=== PATIENT | female | born 1955 | race Caucasian/White ===

== ENCOUNTER → 2016-07-09 | Outpatient (CLI) | payer MEDICARE, MEDICAID | END | disposition home or self-care (01) | LOC: XYW 10:41 | PROVIDERS: ATTEND Internal Medicine | DX: I35.0 Nonrheumatic aortic (valve) stenosis (principal); I34.0 Nonrheumatic mitral (valve) insufficiency; I27.2 Other secondary pulmonary hypertension; I51.7 Cardiomegaly | CPT/HCPCS: 93306 ==

== ENCOUNTER → 2016-09-24 | Outpatient (CLI) | payer MEDICARE, MEDICAID | END | disposition home or self-care (01) | LOC: Rad HDHVI 13:31 | PROVIDERS: ATTEND Internal Medicine Cardiovascular Disease | DX: I10 Essential (primary) hypertension (principal); I27.2 Other secondary pulmonary hypertension | CPT/HCPCS: 93306 ==

== ENCOUNTER → 2016-10-08 | Outpatient (CLI) | payer MEDICARE, MEDICAID ==
[~2016-10-08] VITALS: Ht 175.3 cm; Wt 95.3 kg
[~2016-10-08] MED LIST: ACETAMINOPHEN 500 MG TAB PO ONE; D5W 5% IV SCH; DIPYRIDAMOLE (5MG/ML) 10 ML VIAL IV ONE; DIPYRIDAMOLE IV SCH
[2016-10-08 16:38] LABS: Urine Bilirubin Negative (Negative); Urine Blood Negative /uL (Negative); Urine Color Yellow (Yellow); Urine Glucose Normal (Normal); Urine Ketone Negative (Negative); Urine Nitrite Negative (Negative); Urine Urobilinogen Normal (Negative); Urine pH 7.5 (5.0-8.0)
[2016-10-08 16:41] LABS: Basophils # (auto) 0 uL; Basophils % (auto) 0.8 % (0.0-2.0); CONDITION Y; Eosinophils # (auto) 0.2 uL; Eosinophils % (auto) 4.3 % (0.0-7.0); Hematocrit 37.3 % (36.0-46.0); Hemoglobin 12.6 g/dL (12.2-16.2); Lymphocytes # (auto) 1.3 uL; Mean Corpuscular Hgb Conc. 33.7 g/dL (32.0-36.0); Mean Corpuscular Volume 94.9 fL (80.0-100.0); Monocytes # (auto) 0.4 uL; Monocytes % (auto) 10.1 % (0.0-12.0); Neutrophils # (auto) 1.9 uL; Neutrophils % (auto) 49.8 % (37.0-80.0); Platelet Count (auto) 252 10^3/uL (140-450); Red Cell Distribution Width 15.8 % (11.6-16.0); White Blood Cell 3.9 10^3/uL (4.4-10.8)
[2016-10-08 17:06] LABS: Albumin 4.2 g/dL (3.4-5.0); Bilirubin, Direct 0.1 mg/dL (0-0.2); Bilirubin, Total 0.5 mg/dL (0.2-1.0); Calcium 8.5 mg/dL (8.5-10.1); Total Protein 7.8 g/dL (6.4-8.2)
== END | disposition home or self-care (01) ==
LOC: Rad HDHVI 10:17
PROVIDERS: ATTEND Internal Medicine Cardiovascular Disease
DX: I10 Essential (primary) hypertension (principal); E78.00 Pure hypercholesterolemia, unspecified; K74.1 Hepatic sclerosis; E11.9 Type 2 diabetes mellitus without complications; E03.9 Hypothyroidism, unspecified; D64.9 Anemia, unspecified; E55.9 Vitamin D deficiency, unspecified; N39.0 Urinary tract infection, site not specified; I51.7 Cardiomegaly
CPT/HCPCS: 36415; 78452; 80048; 80061; 80076; 81003; 82306; 83036; 84443; 85025; 93017; 96374; A9500; J1245

== ENCOUNTER → 2016-12-04 | Outpatient (CLI) | payer MEDICARE, MEDICAID ==
[2016-12-04 10:00] VITALS: BP 138/74
[2016-12-04 11:26] LABS: Basophils # (auto) 0 uL; Basophils % (auto) 1.2 % (0.0-2.0); Eosinophils # (auto) 0.1 uL; Eosinophils % (auto) 4.2 % (0.0-7.0); Hematocrit 33.7 % (36.0-46.0); Hemoglobin 11.5 g/dL (12.2-16.2); Lymphocytes # (auto) 1.4 uL; Lymphocytes % (auto) 38.7 % (10.0-50.0); Mean Corpuscular Hemoglobin 31.5 pg (28.0-32.0); Mean Corpuscular Volume 92.5 fL (80.0-100.0); Mean Platelet Volume 7.8 fL (6.9-10.8); Monocytes # (auto) 0.5 uL; Monocytes % (auto) 14.5 % (0.0-12.0); Neutrophils # (auto) 1.5 uL; Neutrophils % (auto) 41.4 % (37.0-80.0); Nucleated Red Blood Cells % 0.2 %; Platelet Count (auto) 234 10^3/uL (140-450); Red Cell Distribution Width 14.1 % (11.8-14.3); White Blood Cell 3.6 10^3/uL (4.4-10.8)
[2016-12-04 11:33] LABS: Anion Gap 9 (5-15); BUN/Creatinine Ratio 5.9; Blood Urea Nitrogen 24 mg/dL (7-18); Calcium 8.2 mg/dL (8.5-10.1); Carbon Dioxide 30 mmol/L (21-32); Chloride 96 mmol/L (98-107); GFR African American 14 mL/min; GFR Non-African American 12 mL/min; Glucose 82 mg/dL (74-106); Magnesium 2.3 mg/dL (1.6-2.6); Potassium 3.6 mmol/L (3.5-5.1); Sodium 135 mmol/L (136-145)
[2016-12-04 11:49] LABS: INR 0.96 (0.9-1.15); Partial Thromboplastin Time 28.2 sec (22.64-33.71); Prothrombin Time 10.5 sec (9.37-12.3)
[2016-12-04 12:10] VITALS: BP 152/66
== END | disposition home or self-care (01) ==
LOC: Rad HDHVI 09:45
PROVIDERS: ATTEND Internal Medicine Cardiovascular Disease
DX: Z01.818 Encounter for other preprocedural examination (principal); I51.7 Cardiomegaly; I70.0 Atherosclerosis of aorta; I10 Essential (primary) hypertension; D64.9 Anemia, unspecified; R79.1 Abnormal coagulation profile
CPT/HCPCS: 36415; 71020; 80048; 83735; 84484; 85025; 85610; 85730; 93005; G0463

== ENCOUNTER 2016-12-09 09:56 | Inpatient (IN) | payer MEDICARE, MEDICAID ==
[~2016-12-09] VITALS: Ht 165.1 cm; Wt 93.9 kg
[2016-12-09] MEDS ORDERED: IOHEXOL 350 MG/ML 100ML IJ ONE (10:25)
[2016-12-09] MEDS ORDERED: LIDOCAINE 2%HCL (LOCAL ANESTH.) INJ 20ML MDV ONE ×2 (10:25→12:11)
[2016-12-09] MEDS ORDERED: fentaNYL CITRATE 100 MCG/2 ML VL ONE (11:50)
[2016-12-09] MEDS ORDERED: MIDAZOLAM HCL 1MG/1ML-2 ML VIAL ONE ×2 (11:50→12:11)
[2016-12-09] MEDS ORDERED: ANGIOMAX 250 MG VIAL IV ONE (11:50)
[2016-12-09] MEDS ORDERED: IODIXANOL 320MG/ML 100ML BTL IV ONE (11:51)
[2016-12-09] MEDS ORDERED: SODIUM CHL 0.9% 50 ML ONE (11:51)
[2016-12-09] MEDS ORDERED: HEPARIN 1,000 UNITS/ml 1ML VIAL ONE (12:41)
[2016-12-09] MEDS ORDERED: HEPARIN SODIUM (PORCINE) 5000 UNITS/ML 1ML VIAL ONE (12:41)
[2016-12-09] MEDS ORDERED: PRASUGREL HCL 10 MG TAB ONE (12:56)
[2016-12-09] MEDS ORDERED: ASPirin 325 MG TAB ONE (12:56)
[2016-12-09 12:57] LABS: Base Excess 4.9 mmol/L (-2.0-2.0); Blood 02Sat 82.5 % (96-100); Blood COHb 0.2 % (0.5-1.5); Blood MetHb 0.3 % (0.0-1.5); HCO3 31.3 mmol/L (22-26.0); HHb 17.4 % (0.0-5.0); MODE NC; O2Hb 82.1 % (94.0-97.0); PCO2 55.8 mmHg (35.0-45.0); PCO2(T) 55.8 mmHg (35.0-45.0); Sample Type Arterial; pH 7.367 (7.350-7.450)
[2016-12-09 13:05] LABS: Base Excess 5.2 mmol/L (-2.0-2.0); Blood COHb 0.1 % (0.5-1.5); Blood MetHb 0.2 % (0.0-1.5); HCO3 31.8 mmol/L (22-26.0); HHb 16.9 % (0.0-5.0); MODE NC; O2Hb 82.8 % (94.0-97.0); PCO2 57.3 mmHg (35.0-45.0); PCO2(T) 57.3 mmHg (35.0-45.0); PO2 51.6 mmHg (80.0-100.0); PO2(T) 51.6 mmHg (80.0-100.0); Sample Type Arterial; pH 7.362 (7.350-7.450)
[2016-12-09 13:07] LABS: Base Excess 3.2 mmol/L (-2.0-2.0); Blood 02Sat 98.2 % (96-100); Blood COHb 0.5 % (0.5-1.5); Blood MetHb 0.3 % (0.0-1.5); HCO3 29.4 mmol/L (22-26.0); HHb 1.8 % (0.0-5.0); MODE NC; O2Hb 97.4 % (94.0-97.0); PCO2 51.5 mmHg (35.0-45.0); PCO2(T) 51.5 mmHg (35.0-45.0); PO2 150.2 mmHg (80.0-100.0); PO2(T) 150.2 mmHg (80.0-100.0); Sample Type Arterial; pH 7.374 (7.350-7.450)
[2016-12-09 13:12] LABS: Base Excess 4.7 mmol/L (-2.0-2.0); Blood 02Sat 79.2 % (96-100); Blood COHb 0.3 % (0.5-1.5); Blood MetHb 0.1 % (0.0-1.5); HCO3 31.3 mmol/L (22-26.0); HHb 20.7 % (0.0-5.0); MODE NC; O2Hb 78.9 % (94.0-97.0); PO2 48.1 mmHg (80.0-100.0); PO2(T) 48.1 mmHg (80.0-100.0); Sample Type Arterial; pH 7.358 (7.350-7.450)
[2016-12-09 13:16] LABS: Base Excess 3.5 mmol/L (-2.0-2.0); Blood COHb 0.3 % (0.5-1.5); Blood MetHb 0.1 % (0.0-1.5); HHb 16.9 % (0.0-5.0); MODE NC; O2Hb 82.7 % (94.0-97.0); PCO2 56.3 mmHg (35.0-45.0); PCO2(T) 56.3 mmHg (35.0-45.0); PO2 53.1 mmHg (80.0-100.0); PO2(T) 53.1 mmHg (80.0-100.0); Sample Type Arterial; pH 7.345 (7.350-7.450)
[2016-12-09] MEDS ORDERED: MILK OF MAGNESIA 30ML SUSP PO ONE (13:30)
[2016-12-09] MEDS ORDERED: LORazepam 0.5 MG TAB PO PRN (13:30)
[2016-12-09] MEDS ORDERED: ZOLPIDEM TARTRATE 5 MG TAB PO PRN (13:30)
[2016-12-09] MEDS ORDERED: NITROGLYCERIN 0.4 MG SL TAB SL PRN (13:30)
[2016-12-09] MEDS ORDERED: ONDANSETRON HCL 4 MG/2 ML VIAL IV PRN (13:30)
[2016-12-09 15:27] VITALS: BP 137/72
[2016-12-09 16:43] VITALS: BP 145/79
[2016-12-09 17:07] VITALS: BP 137/72
[2016-12-09] MEDS ORDERED: DEXTROSE (50%) 50ML SYRG IV PRN (17:15)
[2016-12-09] MEDS ORDERED: AMLO5TAB2 PO (17:39)
[2016-12-09] MEDS ORDERED: ALLO100T PO (17:39)
[2016-12-09] MEDS ORDERED: GABA100C PO (17:46)
[2016-12-09] MEDS ORDERED: ATOR10TA PO (17:46)
[2016-12-09] MEDS ORDERED: FURO20TA PO (17:46)
[2016-12-09] MEDS: SODIUM CHLOR 0.9% PF (SALINE LOCK) 10ML VIAL IV SCH ×2 (18:00→21:38)
[2016-12-09 20:00] VITALS: BP 144/61
[2016-12-09] MEDS: ACCU-CHEK COMFORT CURVE STRIP VI SCH (21:38)
[2016-12-09] MEDS: InsuLIN REG 1unit/0.01ml Soln (100units/ml) SC SCH (21:38)
[2016-12-09 22:00] VITALS: BP 144/61
[2016-12-10 05:00] VITALS: BP 134/59
[2016-12-10] MEDS: SODIUM CHLOR 0.9% PF (SALINE LOCK) 10ML VIAL IV SCH ×3 (05:50→21:04)
[2016-12-10] MEDS: ACCU-CHEK COMFORT CURVE STRIP VI SCH ×4 (05:50→21:04)
[2016-12-10] MEDS: InsuLIN REG 1unit/0.01ml Soln (100units/ml) SC SCH ×4 (05:54→21:10)
[2016-12-10 07:57] VITALS: BP 120/69
[2016-12-10] MEDS: PRASUGREL HCL 10 MG TAB PO SCH (09:34)
[2016-12-10 13:00] VITALS: BP 151/75
[2016-12-10] MEDS: ACETAMINOPHEN 500 MG TAB PO PRN (14:22)
[2016-12-10 17:00] VITALS: BP 134/72
[2016-12-10 20:00] VITALS: BP 146/64
[2016-12-10 22:00] VITALS: BP 146/64
[2016-12-11] MEDS: ACETAMINOPHEN 500 MG TAB PO PRN (00:40)
[2016-12-11 05:00] VITALS: BP 138/67
[2016-12-11] MEDS: ACCU-CHEK COMFORT CURVE STRIP VI SCH ×3 (05:43→12:25)
[2016-12-11] MEDS: SODIUM CHLOR 0.9% PF (SALINE LOCK) 10ML VIAL IV SCH (05:43)
[2016-12-11] MEDS: InsuLIN REG 1unit/0.01ml Soln (100units/ml) SC SCH ×2 (05:58→11:30)
[2016-12-11 09:16] VITALS: BP 147/75
[2016-12-11] MEDS: PRASUGREL HCL 10 MG TAB PO SCH (10:13)
[2016-12-11 13:00] VITALS: BP 147/64
== END 2016-12-11 15:45 | disposition home or self-care (01) | DRG 247 ==
LOC: CATH 09:56 → TELE-EAST 09:57
PROVIDERS: ADMIT Internal Medicine; ATTEND Internal Medicine
PROC: 027034Z Dilation of Coronary Artery, One Artery with Drug-eluting Intraluminal Device, Percutaneous Approach (ICD-10-PCS; principal; 2016-12-09)
PROC: 4A023N8 Measurement of Cardiac Sampling and Pressure, Bilateral, Percutaneous Approach (ICD-10-PCS; 2016-12-09)
PROC: B2111ZZ Fluoroscopy of Multiple Coronary Arteries using Low Osmolar Contrast (ICD-10-PCS; 2016-12-09)
PROC: B2151ZZ Fluoroscopy of Left Heart using Low Osmolar Contrast (ICD-10-PCS; 2016-12-09)
DX: I25.10 Atherosclerotic heart disease of native coronary artery without angina pectoris (principal); I27.20 Pulmonary hypertension, unspecified; I10 Essential (primary) hypertension; E78.5 Hyperlipidemia, unspecified; I73.9 Peripheral vascular disease, unspecified; Z88.8 Allergy status to other drugs, medicaments and biological substances
CPT/HCPCS: 36415; 36600; 82805; 82962; 83036; 99152; 99153; C1874; J2250; Q9967

== ENCOUNTER 2017-01-15 07:26 | Day surgery (SDC) | payer MEDICARE, MEDICAID ==
[2017-01-13 11:29] LABS: Basophils # (auto) 0 uL; Basophils % (auto) 0.9 % (0.0-2.0); Eosinophils # (auto) 0.2 uL; Eosinophils % (auto) 3.7 % (0.0-7.0); Hematocrit 28.4 % (36.0-46.0); Hemoglobin 9.9 g/dL (12.2-16.2); Lymphocytes # (auto) 1.5 uL; Lymphocytes % (auto) 25.9 % (10.0-50.0); Mean Corpuscular Hemoglobin 32.5 pg (28.0-32.0); Mean Corpuscular Hgb Conc. 34.8 g/dL (32.0-36.0); Mean Corpuscular Volume 93.2 fL (80.0-100.0); Mean Platelet Volume 7.6 fL (6.9-10.8); Monocytes # (auto) 0.8 uL; Monocytes % (auto) 13.4 % (0.0-12.0); Neutrophils # (auto) 3.2 uL; Neutrophils % (auto) 56.1 % (37.0-80.0); Platelet Count (auto) 245 10^3/uL (140-450); Red Cell Distribution Width 14.6 % (11.8-14.3); White Blood Cell 5.7 10^3/uL (4.4-10.8)
[2017-01-13 11:38] LABS: INR 0.96 (0.9-1.15); Partial Thromboplastin Time 26.6 sec (22.64-33.71); Prothrombin Time 10.5 sec (9.37-12.3)
[2017-01-13 12:48] LABS: Albumin 4.1 g/dL (3.4-5.0); BUN/Creatinine Ratio 5.5; Bilirubin, Total 0.9 mg/dL (0.2-1.0); Calcium 8.1 mg/dL (8.5-10.1); Potassium 3.2 mmol/L (3.5-5.1)
[2017-01-13 13:27] LABS: Urine Bilirubin Negative (Negative); Urine Blood Negative /uL (Negative); Urine Color Yellow (Yellow); Urine Glucose Normal (Normal); Urine Ketone Negative (Negative); Urine Nitrite Negative (Negative); Urine RBC 1 /hpf (0 - 4); Urine Squamous Epithelial Cell MOD /hpf (<5); Urine Urobilinogen Normal (Negative); Urine pH 6.5 (5.0-8.0)
[~2017-01-15] VITALS: Ht 175.3 cm; Wt 93.9 kg
[~2017-01-15 07:26] MED LIST changes: -ACETAMINOPHEN 500 MG TAB PO ONE; +ALLO100T PO; +AMLO5TAB2 PO; +ASPI81TA27 PO; +ATOR10TA PO; +CLOP75TA28 PO; -D5W 5% IV SCH; -DIPYRIDAMOLE (5MG/ML) 10 ML VIAL IV ONE; -DIPYRIDAMOLE IV SCH; +FURO20TA PO; +GABA100C PO
[2017-01-15] MEDS ORDERED: ceFAZolin 1GM/50ML 50 ML IV ONE (08:48)
[2017-01-15] MEDS ORDERED: BUPIVACAINE 0.75% INJ 10ML MPV SDV IJ ONE (09:51)
[2017-01-15] MEDS ORDERED: fentaNYL CITRATE 100 MCG/2 ML VL ONE (10:29)
[2017-01-15] MEDS ORDERED: MIDAZOLAM HCL 1MG/1ML-2 ML VIAL ONE (10:30)
[2017-01-15] MEDS ORDERED: PROPOFOL 10 MG/ML 20 ML IV ONE (10:31)
[2017-01-15] MEDS ORDERED: ONDANSETRON HCL 4 MG/2 ML VIAL IV ONE (11:15)
[2017-01-15] MEDS ORDERED: ePHEDrine SULFATE 50 MG/ML AMP IV PRN (11:15)
[2017-01-15] MEDS ORDERED: hydrALAZINE HCL 20 MG/ML VL IV PRN (11:15)
[2017-01-15 11:58] VITALS: BP 169/84
[2017-01-15] MEDS ORDERED: fentaNYL CITRATE 100 MCG/2 ML VL IV ONE (12:00)
== END 2017-01-15 12:13 | disposition home or self-care (01) ==
LOC: SUR 07:26
PROVIDERS: ATTEND Podiatrist Foot & Ankle Surgery
DX: M20.12 Hallux valgus (acquired), left foot (principal); M21.612 Bunion of left foot; Z88.5 Allergy status to narcotic agent; J44.9 Chronic obstructive pulmonary disease, unspecified; J45.909 Unspecified asthma, uncomplicated; Z87.891 Personal history of nicotine dependence; Z98.51 Tubal ligation status; E89.0 Postprocedural hypothyroidism; E66.9 Obesity, unspecified; Z68.30 Body mass index [BMI] 30.0-30.9, adult; D69.6 Thrombocytopenia, unspecified
CPT/HCPCS: 28296; 36415; 73620; 76000; 80053; 81001; 84132; 85025; 85610; 85730; C1713; J0690; J2250; J2704; J3010; J3490; L3260

== ENCOUNTER 2017-05-07 10:02 | Day surgery (SDC) | payer MEDICARE, MEDICAID ==
[2017-05-06 11:39] LABS: Basophils # (auto) 0 uL; Basophils % (auto) 1.2 % (0.0-2.0); Eosinophils # (auto) 0.2 uL; Eosinophils % (auto) 5.7 % (0.0-7.0); Hematocrit 35.5 % (36.0-46.0); Hemoglobin 11.7 g/dL (12.2-16.2); Lymphocytes % (auto) 25.4 % (10.0-50.0); Mean Corpuscular Hemoglobin 30.6 pg (28.0-32.0); Mean Corpuscular Volume 92.5 fL (80.0-100.0); Monocytes # (auto) 0.5 uL; Neutrophils # (auto) 2.2 uL; Neutrophils % (auto) 54.7 % (37.0-80.0); Platelet Count (auto) 255 10^3/uL (140-450); Red Blood Cells 3.84 10^6/uL (4.0-5.20); Red Cell Distribution Width 15.4 % (11.8-14.3); White Blood Cell 3.9 10^3/uL (4.4-10.8)
[2017-05-06 11:47] LABS: Albumin 3.9 g/dL (3.4-5.0); BUN/Creatinine Ratio 4.3; Bilirubin, Total 0.5 mg/dL (0.2-1.0); Calcium 7.2 mg/dL (8.5-10.1); Potassium 3.6 mmol/L (3.5-5.1); Total Protein 7.4 g/dL (6.4-8.2)
[2017-05-06 11:51] LABS: INR 0.99 (0.9-1.15); Partial Thromboplastin Time 31.4 sec (22.64-33.71); Prothrombin Time 10.8 sec (9.37-12.3)
[~2017-05-07] VITALS: Ht 175.3 cm; Wt 92.1 kg
[~2017-05-07 10:02] MED LIST changes: +COLC1CAP PO; +MULT-647 OR; +OXYB5TAB62 PO; +SEVE800T8 PO
[2017-05-07] MEDS ORDERED: ceFAZolin 1GM/50ML 50 ML IV ONE (10:20)
[2017-05-07] MEDS ORDERED: BUPIVACAINE 0.75% INJ 10ML MPV SDV IJ ONE (13:36)
[2017-05-07] MEDS ORDERED: PROPOFOL 10 MG/ML 20 ML IV ONE (13:45)
[2017-05-07] MEDS ORDERED: MIDAZOLAM HCL 1MG/1ML-2 ML VIAL ONE (13:45)
[2017-05-07] MEDS ORDERED: fentaNYL CITRATE 100 MCG/2 ML VL ONE (13:45)
[2017-05-07] MEDS ORDERED: ONDANSETRON HCL 4 MG/2 ML VIAL IV ONE (14:30)
[2017-05-07] MEDS ORDERED: ePHEDrine SULFATE 50 MG/ML AMP IV PRN (14:30)
[2017-05-07] MEDS ORDERED: hydrALAZINE HCL 20 MG/ML VL IV PRN (14:30)
[2017-05-07] MEDS ORDERED: fentaNYL CITRATE 100 MCG/2 ML VL IV ONE (15:00)
[2017-05-07 15:15] VITALS: BP 175/85
== END 2017-05-07 15:30 | disposition home or self-care (01) ==
LOC: SUR 10:02
PROVIDERS: ATTEND Podiatrist Foot & Ankle Surgery
DX: T84.84XA Pain due to internal orthopedic prosthetic devices, implants and grafts, initial encounter (principal); Y83.8 Other surgical procedures as the cause of abnormal reaction of the patient, or of later complication, without mention of misadventure at the time of the procedure; Y92.89 Other specified places as the place of occurrence of the external cause; E66.9 Obesity, unspecified; Z68.30 Body mass index [BMI] 30.0-30.9, adult; J44.9 Chronic obstructive pulmonary disease, unspecified; Z87.891 Personal history of nicotine dependence; E03.9 Hypothyroidism, unspecified; E11.22 Type 2 diabetes mellitus with diabetic chronic kidney disease; I12.0 Hypertensive chronic kidney disease with stage 5 chronic kidney disease or end stage renal disease; N18.6 End stage renal disease; Z99.2 Dependence on renal dialysis; D64.9 Anemia, unspecified; J45.909 Unspecified asthma, uncomplicated; Z88.5 Allergy status to narcotic agent
CPT/HCPCS: 14040; 20680; 36415; 80053; 85025; 85610; 85730; J0690; J2250; J2704; J3010; J3490

== ENCOUNTER → 2017-09-09 | Outpatient (CLI) | payer MEDICARE, MEDICAID ==
[2017-09-09 14:00] VITALS: BP 130/80
[2017-09-09 15:00] VITALS: BP 156/78
== END | disposition home or self-care (01) ==
LOC: CHF HDHVI 13:49
PROVIDERS: ATTEND Internal Medicine Cardiovascular Disease
DX: I12.0 Hypertensive chronic kidney disease with stage 5 chronic kidney disease or end stage renal disease (principal); N18.6 End stage renal disease; I27.21 Secondary pulmonary arterial hypertension
CPT/HCPCS: 93701; G0463

== ENCOUNTER → 2017-09-16 | Outpatient (CLI) | payer MEDICARE, MEDICAID ==
[2017-09-16 09:00] VITALS: BP 127/59
[2017-09-16 10:00] VITALS: BP 132/74
[2017-09-16 12:21] LABS: Basophils # (auto) 0.1 uL; Basophils % (auto) 1.2 % (0.0-2.0); Eosinophils # (auto) 0.2 uL; Eosinophils % (auto) 3.5 % (0.0-7.0); Hematocrit 31.7 % (36.0-46.0); Hemoglobin 10.2 g/dL (12.2-16.2); Lymphocytes # (auto) 1.2 uL; Lymphocytes % (auto) 25.3 % (10.0-50.0); Mean Corpuscular Hemoglobin 31.1 pg (28.0-32.0); Mean Corpuscular Hgb Conc. 32.3 g/dL (32.0-36.0); Mean Corpuscular Volume 96.1 fL (80.0-100.0); Monocytes # (auto) 0.6 uL; Monocytes % (auto) 12.4 % (0.0-12.0); Neutrophils # (auto) 2.6 uL; Neutrophils % (auto) 57.6 % (37.0-80.0); Platelet Count (auto) 275 10^3/uL (140-450); Red Cell Distribution Width 16.1 % (11.8-14.3); White Blood Cell 4.6 10^3/uL (4.4-10.8)
[2017-09-16 12:38] LABS: Urine Blood Negative /uL (Negative); Urine Specific Gravity 1.011 (1.001-1.035)
[2017-09-16 13:14] LABS: Albumin 3.9 g/dL (3.4-5.0); BUN/Creatinine Ratio 3.9; Bilirubin, Total 0.6 mg/dL (0.2-1.0); Calcium 7.6 mg/dL (8.5-10.1); Magnesium 2.6 mg/dL (1.6-2.6); Potassium 4.4 mmol/L (3.5-5.1); Total Protein 7.6 g/dL (6.4-8.2); Uric Acid 3.8 mg/dL (2.6-6.0)
== END | disposition home or self-care (01) ==
LOC: CHF HDHVI 09:28
PROVIDERS: ATTEND Internal Medicine Cardiovascular Disease
DX: E83.40 Disorders of magnesium metabolism, unspecified (principal); M10.9 Gout, unspecified; D64.9 Anemia, unspecified; N39.0 Urinary tract infection, site not specified; I27.21 Secondary pulmonary arterial hypertension; I25.10 Atherosclerotic heart disease of native coronary artery without angina pectoris; E11.22 Type 2 diabetes mellitus with diabetic chronic kidney disease; I12.0 Hypertensive chronic kidney disease with stage 5 chronic kidney disease or end stage renal disease; N18.6 End stage renal disease
CPT/HCPCS: 36415; 80053; 81003; 83036; 83735; 84550; 85025; 87086; 94618; G0463

== ENCOUNTER → 2017-09-18 | Outpatient (CLI) | payer MEDICARE, MEDICAID | END | disposition home or self-care (01) | LOC: Rad HDHVI 14:46 | PROVIDERS: ATTEND Internal Medicine | DX: I34.0 Nonrheumatic mitral (valve) insufficiency (principal); I25.10 Atherosclerotic heart disease of native coronary artery without angina pectoris; E11.22 Type 2 diabetes mellitus with diabetic chronic kidney disease; I12.0 Hypertensive chronic kidney disease with stage 5 chronic kidney disease or end stage renal disease; N18.6 End stage renal disease | CPT/HCPCS: 93306 ==

== ENCOUNTER → 2017-09-23 | Outpatient (CLI) | payer MEDICARE, MEDICAID ==
[~2017-09-23] VITALS: Ht 30.5 cm; Wt 0.5 kg
[~2017-09-23] MED LIST changes: +CYANOCOBALAMIN (B-12) 1000 MCG/1 ML VIAL IM ONE; +CYANOCOBALAMIN (B-12) 1000 MCG/1 ML VIAL ONE
[2017-09-23 11:15] VITALS: BP 161/74
[2017-09-23 12:10] VITALS: BP 168/79
== END | disposition home or self-care (01) ==
LOC: CHF HDHVI 11:22
PROVIDERS: ATTEND Internal Medicine Cardiovascular Disease
DX: D64.9 Anemia, unspecified (principal); I25.10 Atherosclerotic heart disease of native coronary artery without angina pectoris; I12.0 Hypertensive chronic kidney disease with stage 5 chronic kidney disease or end stage renal disease; E11.22 Type 2 diabetes mellitus with diabetic chronic kidney disease; N18.6 End stage renal disease; I27.21 Secondary pulmonary arterial hypertension; R06.02 Shortness of breath; M10.9 Gout, unspecified
CPT/HCPCS: 96372; G0463; J3420

== ENCOUNTER → 2017-09-30 | Outpatient (CLI) | payer MEDICARE, MEDICAID ==
[2017-09-30 10:05] VITALS: BP 138/71
[2017-09-30 11:20] VITALS: BP 144/70
== END | disposition home or self-care (01) ==
LOC: CHF HDHVI 09:58
PROVIDERS: ATTEND Internal Medicine Cardiovascular Disease
DX: I27.21 Secondary pulmonary arterial hypertension (principal); D64.9 Anemia, unspecified; I12.0 Hypertensive chronic kidney disease with stage 5 chronic kidney disease or end stage renal disease; E11.22 Type 2 diabetes mellitus with diabetic chronic kidney disease; N18.6 End stage renal disease; I25.10 Atherosclerotic heart disease of native coronary artery without angina pectoris
CPT/HCPCS: 96372; G0463; J3420

== ENCOUNTER → 2017-10-14 | Outpatient (CLI) | payer MEDICARE, MEDICAID ==
[~2017-10-14] MED LIST changes: -CYANOCOBALAMIN (B-12) 1000 MCG/1 ML VIAL IM ONE; -CYANOCOBALAMIN (B-12) 1000 MCG/1 ML VIAL ONE
[2017-10-14 09:35] VITALS: BP 149/67
[2017-10-14 10:20] VITALS: BP 131/68
[2017-10-14 12:33] LABS: Basophils # (auto) 0.1 uL; Basophils % (auto) 1.5 % (0.0-2.0); Eosinophils # (auto) 0.1 uL; Eosinophils % (auto) 3.4 % (0.0-7.0); Hematocrit 31.8 % (36.0-46.0); Hemoglobin 10.2 g/dL (12.2-16.2); Lymphocytes # (auto) 0.9 uL; Lymphocytes % (auto) 25.2 % (10.0-50.0); Mean Corpuscular Hemoglobin 30.9 pg (28.0-32.0); Mean Corpuscular Hgb Conc. 32.2 g/dL (32.0-36.0); Mean Corpuscular Volume 96.1 fL (80.0-100.0); Monocytes # (auto) 0.4 uL; Monocytes % (auto) 11.4 % (0.0-12.0); Neutrophils # (auto) 2.1 uL; Neutrophils % (auto) 58.5 % (37.0-80.0); Nucleated Red Blood Cells % 0.2 %; Platelet Count (auto) 270 10^3/uL (140-450); Red Blood Cells 3.31 10^6/uL (4.0-5.20); White Blood Cell 3.5 10^3/uL (4.4-10.8)
[2017-10-14 12:46] LABS: Calcium 7.8 mg/dL (8.5-10.1); Potassium 3.6 mmol/L (3.5-5.1)
[2017-10-14 12:47] LABS: BUN/Creatinine Ratio 4.5
== END | disposition home or self-care (01) ==
LOC: CHF HDHVI 09:42
PROVIDERS: ATTEND Internal Medicine Cardiovascular Disease
DX: I12.0 Hypertensive chronic kidney disease with stage 5 chronic kidney disease or end stage renal disease (principal); D63.1 Anemia in chronic kidney disease; N18.6 End stage renal disease; I27.21 Secondary pulmonary arterial hypertension; J44.9 Chronic obstructive pulmonary disease, unspecified; Z87.891 Personal history of nicotine dependence; Z88.5 Allergy status to narcotic agent
CPT/HCPCS: 36415; 80048; 85025; 93701; G0463

== ENCOUNTER → 2017-10-31 | Outpatient (CLI) | payer MEDICARE, MEDICAID ==
[~2017-10-31] MED LIST changes: +AMLO5TAB13 PO; -AMLO5TAB2 PO; +OXYB5TAB24 PO; -OXYB5TAB62 PO
[2017-10-31 12:50] VITALS: BP 142/70
[2017-10-31 13:20] VITALS: BP 151/77
== END | disposition home or self-care (01) ==
LOC: CHF HDHVI 12:49
PROVIDERS: ATTEND Internal Medicine Cardiovascular Disease
DX: I27.21 Secondary pulmonary arterial hypertension (principal); R53.83 Other fatigue; I12.0 Hypertensive chronic kidney disease with stage 5 chronic kidney disease or end stage renal disease; N18.5 Chronic kidney disease, stage 5
CPT/HCPCS: G0463

== ENCOUNTER → 2017-11-05 | Outpatient (CLI) | payer MEDICARE, MEDICAID ==
[~2017-11-05] VITALS: Ht 30.5 cm; Wt 0.5 kg
[~2017-11-05] MED LIST changes: +CYANOCOBALAMIN (B-12) 1000 MCG/1 ML VIAL IM ONE; +CYANOCOBALAMIN (B-12) 1000 MCG/1 ML VIAL ONE
[2017-11-05 08:05] VITALS: BP 117/58
[2017-11-05 09:45] VITALS: BP 103/55
== END | disposition home or self-care (01) ==
LOC: CHF HDHVI 09:15
PROVIDERS: ATTEND Internal Medicine
DX: E11.22 Type 2 diabetes mellitus with diabetic chronic kidney disease (principal); I13.2 Hypertensive heart and chronic kidney disease with heart failure and with stage 5 chronic kidney disease, or end stage renal disease; N18.6 End stage renal disease; I50.9 Heart failure, unspecified; D63.1 Anemia in chronic kidney disease; I25.10 Atherosclerotic heart disease of native coronary artery without angina pectoris; J44.9 Chronic obstructive pulmonary disease, unspecified; N39.0 Urinary tract infection, site not specified
CPT/HCPCS: 93701; 96372; G0463; J3420

== ENCOUNTER → 2017-11-11 | Outpatient (CLI) | payer MEDICARE, MEDICAID ==
[~2017-11-11] MED LIST changes: -CYANOCOBALAMIN (B-12) 1000 MCG/1 ML VIAL IM ONE; -CYANOCOBALAMIN (B-12) 1000 MCG/1 ML VIAL ONE
[2017-11-11 12:19] LABS: Basophils # (auto) 0 uL; Basophils % (auto) 1.2 % (0.0-2.0); Eosinophils # (auto) 0.1 uL; Eosinophils % (auto) 2.5 % (0.0-7.0); Hematocrit 31.8 % (36.0-46.0); Hemoglobin 10.4 g/dL (12.2-16.2); Lymphocytes # (auto) 0.6 uL; Lymphocytes % (auto) 16.7 % (10.0-50.0); Mean Corpuscular Hemoglobin 31.6 pg (28.0-32.0); Mean Corpuscular Hgb Conc. 32.6 g/dL (32.0-36.0); Mean Corpuscular Volume 96.8 fL (80.0-100.0); Monocytes # (auto) 0.4 uL; Monocytes % (auto) 9.8 % (0.0-12.0); Neutrophils # (auto) 2.6 uL; Neutrophils % (auto) 69.8 % (37.0-80.0); Nucleated Red Blood Cells % 0.1 %; Platelet Count (auto) 217 10^3/uL (140-450); Red Blood Cells 3.29 10^6/uL (4.0-5.20); Red Cell Distribution Width 16.3 % (11.8-14.3); White Blood Cell 3.7 10^3/uL (4.4-10.8)
[2017-11-11 13:04] LABS: Calcium 7.8 mg/dL (8.5-10.1); Potassium 3.8 mmol/L (3.5-5.1)
== END | disposition home or self-care (01) ==
LOC: CHF HDHVI 09:34
PROVIDERS: ATTEND Internal Medicine Cardiovascular Disease
DX: I25.10 Atherosclerotic heart disease of native coronary artery without angina pectoris (principal); I13.2 Hypertensive heart and chronic kidney disease with heart failure and with stage 5 chronic kidney disease, or end stage renal disease; I50.9 Heart failure, unspecified; N18.6 End stage renal disease; I27.21 Secondary pulmonary arterial hypertension; J44.9 Chronic obstructive pulmonary disease, unspecified; D64.9 Anemia, unspecified; Z87.891 Personal history of nicotine dependence; Z88.5 Allergy status to narcotic agent
CPT/HCPCS: 36415; 80048; 85025; 93701; G0463

== ENCOUNTER → 2017-11-25 | Outpatient (CLI) | payer MEDICARE, MEDICAID ==
[2017-11-25 08:45] VITALS: BP 139/67
[2017-11-25 09:54] VITALS: BP 115/54
== END | disposition home or self-care (01) ==
LOC: CHF HDHVI 08:53
PROVIDERS: ATTEND Internal Medicine Cardiovascular Disease
DX: I10 Essential (primary) hypertension (principal); I27.21 Secondary pulmonary arterial hypertension; N19 Unspecified kidney failure
CPT/HCPCS: 94618; G0463

== ENCOUNTER → 2017-12-26 | Outpatient (CLI) | payer MEDICARE, MEDICAID ==
[~2017-12-26] VITALS: Ht 175.3 cm; Wt 86.2 kg
[~2017-12-26] MED LIST changes: +ADENOSINE 72 MG in GIVE UN-DILUTED 0 ML IV ONE; +ADENOSINE 90 MG/30 ML INJ IV ONE
== END | disposition home or self-care (01) ==
LOC: Rad HDHVI 09:59
PROVIDERS: ATTEND Internal Medicine Cardiovascular Disease
DX: I10 Essential (primary) hypertension (principal); M54.9 Dorsalgia, unspecified; G89.29 Other chronic pain; G47.33 Obstructive sleep apnea (adult) (pediatric); J44.9 Chronic obstructive pulmonary disease, unspecified; Z98.61 Coronary angioplasty status; Z87.891 Personal history of nicotine dependence
CPT/HCPCS: 78452; 93005; 96374; 96375; A9500; J0153

== ENCOUNTER → 2017-12-30 | Outpatient (CLI) | payer MEDICARE, MEDICAID ==
[~2017-12-30] MED LIST changes: -ADENOSINE 72 MG in GIVE UN-DILUTED 0 ML IV ONE; -ADENOSINE 90 MG/30 ML INJ IV ONE; +CYANOCOBALAMIN (B-12) 1000 MCG/1 ML VIAL IM ONE; +CYANOCOBALAMIN (B-12) 1000 MCG/1 ML VIAL ONE
[2017-12-30 09:35] VITALS: BP 141/70
[2017-12-30 10:20] VITALS: BP 141/53
[2017-12-30 12:27] LABS: Basophils # (auto) 0 uL; Basophils % (auto) 1.4 % (0.0-2.0); Eosinophils # (auto) 0.1 uL; Eosinophils % (auto) 4.3 % (0.0-7.0); Hematocrit 34.8 % (36.0-46.0); Hemoglobin 11.3 g/dL (12.2-16.2); Lymphocytes # (auto) 0.7 uL; Lymphocytes % (auto) 22.1 % (10.0-50.0); Mean Corpuscular Hemoglobin 31.1 pg (28.0-32.0); Mean Corpuscular Hgb Conc. 32.5 g/dL (32.0-36.0); Mean Corpuscular Volume 95.8 fL (80.0-100.0); Monocytes # (auto) 0.5 uL; Neutrophils # (auto) 1.7 uL; Neutrophils % (auto) 56.2 % (37.0-80.0); Nucleated Red Blood Cells % 0.6 %; Platelet Count (auto) 214 10^3/uL (140-450); Red Blood Cells 3.63 10^6/uL (4.0-5.20); Red Cell Distribution Width 16.3 % (11.8-14.3)
[2017-12-30 12:52] LABS: Calcium 7.9 mg/dL (8.5-10.1); Magnesium 2.3 mg/dL (1.6-2.6); Potassium 3.5 mmol/L (3.5-5.1)
[2017-12-30 12:55] LABS: BUN/Creatinine Ratio 3.8
== END | disposition home or self-care (01) ==
LOC: CHF HDHVI 09:44
PROVIDERS: ATTEND Internal Medicine Cardiovascular Disease
DX: I13.2 Hypertensive heart and chronic kidney disease with heart failure and with stage 5 chronic kidney disease, or end stage renal disease (principal); E11.22 Type 2 diabetes mellitus with diabetic chronic kidney disease; N18.6 End stage renal disease; D63.8 Anemia in other chronic diseases classified elsewhere; E83.40 Disorders of magnesium metabolism, unspecified; J44.9 Chronic obstructive pulmonary disease, unspecified; G89.29 Other chronic pain; G47.33 Obstructive sleep apnea (adult) (pediatric); I25.10 Atherosclerotic heart disease of native coronary artery without angina pectoris; I27.21 Secondary pulmonary arterial hypertension; M10.9 Gout, unspecified; I34.0 Nonrheumatic mitral (valve) insufficiency; Z88.5 Allergy status to narcotic agent; Z95.1 Presence of aortocoronary bypass graft; Z87.440 Personal history of urinary (tract) infections; Z87.891 Personal history of nicotine dependence
CPT/HCPCS: 36415; 80048; 83735; 85025; 96372; G0463; J3420

== ENCOUNTER → 2018-01-29 | Outpatient (CLI) | payer MEDICARE, MEDICAID ==
[2018-01-29 09:00] VITALS: BP 113/54
[2018-01-29 10:14] VITALS: BP 107/53
== END | disposition home or self-care (01) ==
LOC: CHF HDHVI 09:01
PROVIDERS: ATTEND Internal Medicine Cardiovascular Disease
DX: D64.9 Anemia, unspecified (principal); I27.21 Secondary pulmonary arterial hypertension; I13.2 Hypertensive heart and chronic kidney disease with heart failure and with stage 5 chronic kidney disease, or end stage renal disease; E11.22 Type 2 diabetes mellitus with diabetic chronic kidney disease; N18.6 End stage renal disease; I50.9 Heart failure, unspecified; I25.10 Atherosclerotic heart disease of native coronary artery without angina pectoris; J44.9 Chronic obstructive pulmonary disease, unspecified; G47.33 Obstructive sleep apnea (adult) (pediatric); G89.29 Other chronic pain; E03.9 Hypothyroidism, unspecified; E66.9 Obesity, unspecified; D69.6 Thrombocytopenia, unspecified; E78.5 Hyperlipidemia, unspecified; E78.00 Pure hypercholesterolemia, unspecified; Z87.891 Personal history of nicotine dependence; Z95.1 Presence of aortocoronary bypass graft; Z87.440 Personal history of urinary (tract) infections; Z98.61 Coronary angioplasty status; Z99.2 Dependence on renal dialysis
CPT/HCPCS: 93701; 96372; G0463; J3420

== ENCOUNTER → 2018-02-18 | Outpatient (CLI) | payer MEDICARE, MEDICAID ==
[2018-02-18 09:15] VITALS: BP 158/71
--- NOTE | 2018-02-18 09:15 | NUR ---
CHF PT TO CHF CLINIC FOR MD MENDOZA ORDERED CARDIODYNAMICS AND VIT B 12 INJECTION AND PAH REEVAL.
[2018-02-18 10:17] VITALS: BP 162/74
--- NOTE | 2018-02-18 10:17 | NUR ---
CHF Discharge Instructions See e-MAR for any mediations given with this visit.VIT B 12 1000MCG IM L DELTOID. Patient education given on disease process. Patient verbalized understanding. Previous labs reviewed. F/U IN 1 WEEK FOR REEVAL LE EDEMA AFTER WEARING COMPRESSION STOCKING FOR EDEMA RELIEF. BRING LAB RESULTS FROM DIALYSIS TO NEXT VISIT. Patient discharged in stable condition with after care instructions and follow up appointment.
== END | disposition home or self-care (01) ==
LOC: CHF HDHVI 09:34
PROVIDERS: ATTEND Internal Medicine Cardiovascular Disease
DX: I27.21 Secondary pulmonary arterial hypertension (principal); D64.9 Anemia, unspecified; I13.2 Hypertensive heart and chronic kidney disease with heart failure and with stage 5 chronic kidney disease, or end stage renal disease; E11.22 Type 2 diabetes mellitus with diabetic chronic kidney disease; N18.6 End stage renal disease; I50.9 Heart failure, unspecified; I25.10 Atherosclerotic heart disease of native coronary artery without angina pectoris; J44.9 Chronic obstructive pulmonary disease, unspecified; E78.5 Hyperlipidemia, unspecified; E03.9 Hypothyroidism, unspecified; E78.00 Pure hypercholesterolemia, unspecified; G89.29 Other chronic pain; E66.9 Obesity, unspecified; Z68.30 Body mass index [BMI] 30.0-30.9, adult; Z87.891 Personal history of nicotine dependence; Z95.1 Presence of aortocoronary bypass graft; Z98.61 Coronary angioplasty status; Z99.2 Dependence on renal dialysis
CPT/HCPCS: 94618; 96372; G0463; J3420

== ENCOUNTER → 2018-03-26 | Outpatient (CLI) | payer MEDICARE, MEDICAID ==
[2018-03-26 10:44] VITALS: BP 149/76
[2018-03-26 12:00] VITALS: BP 167/70
--- NOTE | 2018-03-26 12:00 | NUR ---
CHF CLINIC Discharge Instructions See e-MAR for any mediations given with this visit. Patient education given on disease process. Patient verbalized understanding. Previous labs reviewed. Patient discharged in stable condition with after care instructions and follow up appointment ON FRIDAY. NOTE VIT B12 IM L DELTOID ADMIN BY ARIE PIEDRA. CARDIODYNAMICS PERFORMED BY ARIE PIEDRA, RESULTS REVIEWED WITH PATIENT BY CHARISMA DAVID. PATIENT WILL COME IN ON FRIDAY TO DISCUSS POSSIBLE MEDICATION CHANGES.
== END | disposition home or self-care (01) ==
LOC: CHF HDHVI 10:46
PROVIDERS: ATTEND Internal Medicine Cardiovascular Disease
DX: I13.11 Hypertensive heart and chronic kidney disease without heart failure, with stage 5 chronic kidney disease, or end stage renal disease (principal); E11.22 Type 2 diabetes mellitus with diabetic chronic kidney disease; N18.6 End stage renal disease; I50.9 Heart failure, unspecified; I27.21 Secondary pulmonary arterial hypertension; I25.10 Atherosclerotic heart disease of native coronary artery without angina pectoris; E11.51 Type 2 diabetes mellitus with diabetic peripheral angiopathy without gangrene; J44.9 Chronic obstructive pulmonary disease, unspecified; E78.5 Hyperlipidemia, unspecified; E03.9 Hypothyroidism, unspecified; E66.9 Obesity, unspecified; E78.00 Pure hypercholesterolemia, unspecified; G47.33 Obstructive sleep apnea (adult) (pediatric); G89.29 Other chronic pain; Z87.440 Personal history of urinary (tract) infections; Z68.30 Body mass index [BMI] 30.0-30.9, adult; Z87.891 Personal history of nicotine dependence; Z99.2 Dependence on renal dialysis; Z98.61 Coronary angioplasty status
CPT/HCPCS: 93701; 96372; G0463; J3420

== ENCOUNTER → 2018-03-31 | Outpatient (CLI) | payer MEDICARE, MEDICAID ==
[~2018-03-31] MED LIST changes: -CYANOCOBALAMIN (B-12) 1000 MCG/1 ML VIAL IM ONE; -CYANOCOBALAMIN (B-12) 1000 MCG/1 ML VIAL ONE
[2018-03-31 10:55] VITALS: BP 148/75
--- NOTE | 2018-03-31 11:30 | NUR ---
CHF CLINIC Discharge Instructions See e-MAR for any mediations given with this visit. Patient education given on disease process. Patient verbalized understanding. Previous labs reviewed. Patient discharged in stable condition with after care instructions and follow up appointment. NOTE PATIENT SILDENAFIL INCREASED TO 40MG TID, PRESCRIPTION CALLED IN TO PT PHARMACY. PT STILL WAITING FOR CPAP
== END | disposition home or self-care (01) ==
LOC: CHF HDHVI 10:27
PROVIDERS: ATTEND Internal Medicine Cardiovascular Disease
DX: E55.9 Vitamin D deficiency, unspecified (principal); N18.6 End stage renal disease
CPT/HCPCS: 36415; 82306; 83735; G0463

== ENCOUNTER → 2018-04-23 | Outpatient (CLI) | payer MEDICARE, MEDICAID ==
[~2018-04-23] MED LIST changes: +CYANOCOBALAMIN (B-12) 1000 MCG/1 ML VIAL IM ONE; +CYANOCOBALAMIN (B-12) 1000 MCG/1 ML VIAL ONE; -SEVE800T8 PO
--- NOTE | 2018-04-23 10:40 | NUR ---
PT. TO PAH/CHF CLINIC FOR EVAL. AND TX PER MD ORDER. PT. HAS HD ON // AND WAS RECENTLY HOSPITALIZED AT [facility] FOR SOB, AND ACCELERATED HTN. PT. NOW PRESENTS WITH B/P 90/41, FEELING FATIGUED AND WEAK. PT. STATES 2 LITERS WAS PULLED OFF YESTERDAY IN DIALYSIS AND PT. WAS HYPERTENSIVE POST TX. ORDERS RECEIVED AND CARRIED OUT. PT. ALSO PRESENTS WITH RECENT COPY OF OUTSIDE LABS, REVIEWED WITH PT. AND CHARTED. SEE NSG ASSESS.
[2018-04-23 10:45] VITALS: BP 90/41
--- NOTE | 2018-04-23 11:19 | NUR ---
CARDIODYNAMICS DONE WITH IMPROVED RESULTS REVIEWED WITH PT. AND CHARTED.
--- NOTE | 2018-04-23 11:45 | NUR ---
MEDS: PT. MEDICATED WITH VIT. B12 1000MCG IM LFT DELT. PER MD ORDER.
[2018-04-23 12:00] VITALS: BP 99/54
--- NOTE | 2018-04-23 12:00 | NUR ---
Discharge Instructions See e-MAR for any mediations given with this visit. Patient education given on disease process. Patient verbalized understanding. Previous labs reviewed. Patient discharged in stable condition with after care instructions and follow up appointment. PT. INSTRUCTED TO HOLD NORVASC IF B/P IS BELOW 100 SYSTOLIC. PT. TO BRING IN ALL MEDS AT NEXT VISIT.
== END | disposition home or self-care (01) ==
LOC: CHF HDHVI 10:40
PROVIDERS: ATTEND Internal Medicine Cardiovascular Disease
DX: I13.2 Hypertensive heart and chronic kidney disease with heart failure and with stage 5 chronic kidney disease, or end stage renal disease (principal); E11.22 Type 2 diabetes mellitus with diabetic chronic kidney disease; N18.6 End stage renal disease; I50.42 Chronic combined systolic (congestive) and diastolic (congestive) heart failure; D64.9 Anemia, unspecified; I25.10 Atherosclerotic heart disease of native coronary artery without angina pectoris; I27.21 Secondary pulmonary arterial hypertension; J44.9 Chronic obstructive pulmonary disease, unspecified; E78.5 Hyperlipidemia, unspecified; G47.00 Insomnia, unspecified; E11.40 Type 2 diabetes mellitus with diabetic neuropathy, unspecified; E11.51 Type 2 diabetes mellitus with diabetic peripheral angiopathy without gangrene; M19.90 Unspecified osteoarthritis, unspecified site; E03.9 Hypothyroidism, unspecified; G89.29 Other chronic pain; E78.00 Pure hypercholesterolemia, unspecified; Z99.2 Dependence on renal dialysis; Z87.440 Personal history of urinary (tract) infections; Z79.899 Other long term (current) drug therapy; Z95.5 Presence of coronary angioplasty implant and graft; Z87.891 Personal history of nicotine dependence; Z68.30 Body mass index [BMI] 30.0-30.9, adult; Z86.73 Personal history of transient ischemic attack (TIA), and cerebral infarction without residual deficits
CPT/HCPCS: 93701; 96372; G0463; J3420

== ENCOUNTER → 2018-05-19 | Outpatient (CLI) | payer MEDICARE, MEDICAID ==
[~2018-05-19] MED LIST changes: +AMBR1TAB PO; +ATOR40TA52 PO; +CINA30TA2 PO; +CLON0.1T PO; +CLOP75TA41 PO; +COLC1TAB3 PO; -CYANOCOBALAMIN (B-12) 1000 MCG/1 ML VIAL IM ONE; -CYANOCOBALAMIN (B-12) 1000 MCG/1 ML VIAL ONE; +FURO40TA4 PO; +GABA100C9 PO; +GABA300C10 PO; +HEPARIN IN NS 1000Units/500mL 0 ML ONE; +IODIXANOL 320MG/ML 100ML BTL IV ONE; +LIDOCAINE 2%HCL (LOCAL ANESTH.) INJ 20ML MDV ONE; +LISI-646 PO; +OXYB5TAB61 PO; +SEVE800T8 PO; +SILD20TA12 OR
[2018-05-19 14:55] VITALS: BP 166/74
[2018-05-19 15:16] VITALS: BP 158/71
--- NOTE | 2018-05-19 15:16 | NUR ---
PRE-OP FOR LEFT AND RIGHT HEART CATH FOR 05/20/18 Pre-Op Discharge Summary: See e-MAR for any medications given for this visit. Pre-op orders received and carried out per MD of EKG, LABS and chest xrays. Patient given a copy of EKG with instructions to go to [facility] out patient for further follow up care.
[2018-05-19 15:53] LABS: Basophils # (auto) 0 uL; Basophils % (auto) 1.4 % (0.0-2.0); Eosinophils # (auto) 0.1 uL; Eosinophils % (auto) 5.4 % (0.0-7.0); Hematocrit 40.4 % (36.0-46.0); Lymphocytes # (auto) 0.7 uL; Lymphocytes % (auto) 28.5 % (10.0-50.0); Mean Corpuscular Hemoglobin 31.3 pg (28.0-32.0); Mean Corpuscular Hgb Conc. 32.2 g/dL (32.0-36.0); Mean Corpuscular Volume 97.3 fL (80.0-100.0); Monocytes # (auto) 0.5 uL; Monocytes % (auto) 17.8 % (0.0-12.0); Neutrophils # (auto) 1.2 uL; Neutrophils % (auto) 46.9 % (37.0-80.0); Nucleated Red Blood Cells % 0.2 %; Platelet Count (auto) 192 10^3/uL (140-450); Red Blood Cells 4.16 10^6/uL (4.0-5.20); White Blood Cell 2.6 10^3/uL (4.4-10.8)
[2018-05-19 16:10] LABS: INR 0.96 (0.9-1.15); Partial Thromboplastin Time 41.3 sec (23.78-33.04); Prothrombin Time 10.3 sec (9.27-12.13)
[2018-05-19 16:12] LABS: BUN/Creatinine Ratio 5.3; Calcium 7.9 mg/dL (8.5-10.1); Potassium 5.1 mmol/L (3.5-5.1)
== END | disposition home or self-care (01) ==
LOC: Rad HDHVI 14:33
PROVIDERS: ATTEND Internal Medicine
DX: Z01.812 Encounter for preprocedural laboratory examination (principal); D64.9 Anemia, unspecified; R79.1 Abnormal coagulation profile; I11.9 Hypertensive heart disease without heart failure; E11.9 Type 2 diabetes mellitus without complications; I70.0 Atherosclerosis of aorta; R94.31 Abnormal electrocardiogram [ECG] [EKG]
CPT/HCPCS: 36415; 71046; 80048; 85025; 85610; 85730; 93005; G0463

== ENCOUNTER 2018-05-20 09:32 | Day surgery (SDC) | payer MEDICARE, MEDICAID ==
[~2018-05-20] VITALS: Ht 175.3 cm; Wt 81.6 kg
[~2018-05-20 09:32] MED LIST changes: -AMBR1TAB PO; -ASPI81TA27 PO; -ATOR10TA PO; -CLON0.1T PO; -GABA300C10 PO; -HEPARIN IN NS 1000Units/500mL 0 ML ONE; -IODIXANOL 320MG/ML 100ML BTL IV ONE; -LIDOCAINE 2%HCL (LOCAL ANESTH.) INJ 20ML MDV ONE; -LISI-646 PO; -SILD20TA12 OR
[2018-05-20] MEDS ORDERED: IODIXANOL 320MG/ML 100ML BTL IV ONE ×2 (10:17→10:59)
[2018-05-20] MEDS ORDERED: LIDOCAINE 2%HCL (LOCAL ANESTH.) INJ 20ML MDV ONE (10:18)
[2018-05-20] MEDS ORDERED: AMBR1TAB PO (10:22)
[2018-05-20] MEDS ORDERED: SILD20TA12 OR (10:22)
[2018-05-20] MEDS ORDERED: CLON0.1T PO (10:22)
[2018-05-20] MEDS ORDERED: GABA300C10 PO (10:22)
[2018-05-20] MEDS ORDERED: ASPI81TA27 PO (10:22)
[2018-05-20] MEDS ORDERED: LISI-646 PO (10:22)
[2018-05-20] MEDS ORDERED: ANGIOMAX 250 MG VIAL IV ONE (10:41)
[2018-05-20] MEDS ORDERED: fentaNYL CITRATE 100 MCG/2 ML VL ONE (10:41)
[2018-05-20] MEDS ORDERED: MIDAZOLAM HCL 1MG/1ML-2 ML VIAL ONE (10:42)
[2018-05-20] MEDS ORDERED: SODIUM CHL 0.9% 0 ML ONE (10:42)
[2018-05-20] MEDS ORDERED: hydrALAZINE HCL 20 MG/ML VL ONE (11:18)
[2018-05-20] MEDS ORDERED: cloNIDine HCL 0.1 MG TAB ONE ×2 (11:30→11:32)
== END 2018-05-20 14:42 | disposition home or self-care (01) ==
LOC: CATH 09:32
PROVIDERS: ATTEND Internal Medicine
DX: I25.10 Atherosclerotic heart disease of native coronary artery without angina pectoris (principal); J44.9 Chronic obstructive pulmonary disease, unspecified; J98.8 Other specified respiratory disorders; J45.909 Unspecified asthma, uncomplicated; I10 Essential (primary) hypertension; Z79.899 Other long term (current) drug therapy; Z79.82 Long term (current) use of aspirin; Z88.5 Allergy status to narcotic agent; Z90.710 Acquired absence of both cervix and uterus; Z87.891 Personal history of nicotine dependence
CPT/HCPCS: 36600; 82805; 93460; A6257; C1751; C1760; C1894; J0360; J1644; J2250; J3010; J7030; Q9967; 93456; 99152; 99153

== ENCOUNTER → 2018-05-26 | Outpatient (CLI) | payer MEDICARE, MEDICAID ==
[~2018-05-26] MED LIST changes: -ALLO100T PO; +AMBR1TAB PO; +ASPI81TA27 PO; -CINA30TA2 PO; +CLON0.1T PO; -CLOP75TA28 PO; -CLOP75TA41 PO; -COLC1CAP PO; +CYANOCOBALAMIN (B-12) 1000 MCG/1 ML VIAL IM ONE; +CYANOCOBALAMIN (B-12) 1000 MCG/1 ML VIAL ONE; -FURO20TA PO; -GABA100C PO; -GABA100C9 PO; +GABA300C10 PO; +LISI-646 PO; -OXYB5TAB24 PO; +SILD20TA12 OR
[2018-05-26 10:00] VITALS: BP 191/77
--- NOTE | 2018-05-26 11:22 | NUR ---
PATIENT TOOK HOME MEDICATION OF 0.1MG CLONIDINE.
[2018-05-26 11:45] VITALS: BP 169/86
--- NOTE | 2018-05-26 11:45 | NUR ---
CHF CLINIC Discharge Instructions See e-MAR for any mediations given with this visit. Patient education given on disease process. Patient verbalized understanding. Previous labs reviewed. Patient discharged in stable condition with after care instructions and follow up appointment ON 06/16/18. NOTE B12 IM L DELTOID ADMIN BY CHARISMA DAVID CARDIODYNAMICS PERFORMED BY BREANA PIEDRA AND REVIEWED WITH PATIENT BY LISA DAVID. PATIENT HAD L/RHC ON 05/20/18. PATIENT BROUGHT IN LABS FROM DIALYSIS, PATIENT EDUCATED TO NOT EAT FOODS HIGH IN POTASSIUM.
== END | disposition home or self-care (01) ==
LOC: CHF HDHVI 10:03
PROVIDERS: ATTEND Internal Medicine Cardiovascular Disease
DX: I13.2 Hypertensive heart and chronic kidney disease with heart failure and with stage 5 chronic kidney disease, or end stage renal disease (principal); N18.6 End stage renal disease; I25.10 Atherosclerotic heart disease of native coronary artery without angina pectoris; J44.9 Chronic obstructive pulmonary disease, unspecified; J45.909 Unspecified asthma, uncomplicated; E78.5 Hyperlipidemia, unspecified; E03.9 Hypothyroidism, unspecified; E11.22 Type 2 diabetes mellitus with diabetic chronic kidney disease; M19.90 Unspecified osteoarthritis, unspecified site; E11.40 Type 2 diabetes mellitus with diabetic neuropathy, unspecified; E66.01 Morbid (severe) obesity due to excess calories; Z68.30 Body mass index [BMI] 30.0-30.9, adult; Z86.73 Personal history of transient ischemic attack (TIA), and cerebral infarction without residual deficits; Z79.82 Long term (current) use of aspirin; Z79.899 Other long term (current) drug therapy; Z90.710 Acquired absence of both cervix and uterus; Z87.891 Personal history of nicotine dependence; Z99.2 Dependence on renal dialysis
CPT/HCPCS: 93701; 96372; G0463; J3420

== ENCOUNTER → 2018-06-16 | Outpatient (CLI) | payer MEDICARE, MEDICAID ==
[2018-06-16 10:00] VITALS: BP 94/56
[2018-06-16 10:50] VITALS: BP 103/54
--- NOTE | 2018-06-16 10:50 | NUR ---
IN FOR PAH FOLLOWUP. MEDICATION AND STATUS REVIEW DONE WITH BERT DAVID. VS WNL. Discharge Instructions See e-MAR for any mediations given with this visit. Patient education given on disease process. Patient verbalized understanding. Previous labs reviewed. Patient discharged in stable condition with after care instructions and follow up appointment
== END | disposition home or self-care (01) ==
LOC: CHF HDHVI 10:06
PROVIDERS: ATTEND Internal Medicine Cardiovascular Disease
DX: I13.2 Hypertensive heart and chronic kidney disease with heart failure and with stage 5 chronic kidney disease, or end stage renal disease (principal); I50.9 Heart failure, unspecified; I27.21 Secondary pulmonary arterial hypertension; I25.10 Atherosclerotic heart disease of native coronary artery without angina pectoris; J44.9 Chronic obstructive pulmonary disease, unspecified; N18.6 End stage renal disease; E78.5 Hyperlipidemia, unspecified; E03.9 Hypothyroidism, unspecified; E66.01 Morbid (severe) obesity due to excess calories; E11.22 Type 2 diabetes mellitus with diabetic chronic kidney disease; E11.40 Type 2 diabetes mellitus with diabetic neuropathy, unspecified; M19.90 Unspecified osteoarthritis, unspecified site; Z87.891 Personal history of nicotine dependence; Z90.710 Acquired absence of both cervix and uterus; Z99.2 Dependence on renal dialysis; Z79.82 Long term (current) use of aspirin; Z68.30 Body mass index [BMI] 30.0-30.9, adult; Z79.899 Other long term (current) drug therapy; Z86.73 Personal history of transient ischemic attack (TIA), and cerebral infarction without residual deficits
CPT/HCPCS: 96372; G0463; J3420

== ENCOUNTER → 2018-07-14 | Outpatient (CLI) | payer MEDICARE, MEDICAID ==
[2018-07-14 10:20] VITALS: BP 126/58
--- NOTE | 2018-07-14 10:20 | NUR ---
CHF PT ARRIVED AT THE CHF CLINIC FOR MONTHLY PAH F/U. PT A/O X 3 0 DISTRESS. BP LOW , DIALYSIS DONE 07/13/18, NORMAL FOR PATIENT AFTER DIALYSIS/ . V/S OBTAINED
--- NOTE | 2018-07-14 11:30 | NUR ---
CARDIO CARDIODYNAMICS COMPLETE ALONG WITH 6 MINUTE WALK TEST. PT CARDIODYNAMICS IMPROVED AND DISCUSSED WITH PT , PT VERBALIZED UNDERSTANDING. 6 MINUTE WALK TEST COMPLETE, PT TIRED AT THE END, WILL FOLLOW UP AT CLINIC IN TWO WEEKS.
[2018-07-14 11:50] VITALS: BP 103/54
--- NOTE | 2018-07-14 11:50 | NUR ---
Discharge Instructions See e-MAR for any mediations given with this visit. Patient education given on disease process. Patient verbalized understanding. Previous labs reviewed. Patient discharged in stable condition with after care instructions and follow up appointment. MEDICATIONS 1150 VITAMIN B12 1000 MCG IM X 1
== END | disposition home or self-care (01) ==
LOC: CHF HDHVI 10:26
PROVIDERS: ATTEND Internal Medicine Cardiovascular Disease
DX: I13.2 Hypertensive heart and chronic kidney disease with heart failure and with stage 5 chronic kidney disease, or end stage renal disease (principal); E11.22 Type 2 diabetes mellitus with diabetic chronic kidney disease; I50.9 Heart failure, unspecified; N18.6 End stage renal disease; R42 Dizziness and giddiness; M10.9 Gout, unspecified; I27.21 Secondary pulmonary arterial hypertension; I25.10 Atherosclerotic heart disease of native coronary artery without angina pectoris; J44.9 Chronic obstructive pulmonary disease, unspecified; E11.40 Type 2 diabetes mellitus with diabetic neuropathy, unspecified; E78.5 Hyperlipidemia, unspecified; E03.9 Hypothyroidism, unspecified; E66.01 Morbid (severe) obesity due to excess calories; M19.90 Unspecified osteoarthritis, unspecified site; Z99.2 Dependence on renal dialysis; Z79.82 Long term (current) use of aspirin; Z79.899 Other long term (current) drug therapy; Z87.891 Personal history of nicotine dependence; Z86.73 Personal history of transient ischemic attack (TIA), and cerebral infarction without residual deficits; Z90.710 Acquired absence of both cervix and uterus; Z68.30 Body mass index [BMI] 30.0-30.9, adult
CPT/HCPCS: 93701; 94618; 96372; G0463; J3420

== ENCOUNTER → 2018-07-28 | Outpatient (CLI) | payer MEDICARE, MEDICAID ==
[~2018-07-28] MED LIST changes: -CYANOCOBALAMIN (B-12) 1000 MCG/1 ML VIAL IM ONE; -CYANOCOBALAMIN (B-12) 1000 MCG/1 ML VIAL ONE
[2018-07-28 11:15] VITALS: BP 114/59
[2018-07-28] MEDS: CYANOCOBALAMIN (B-12) 1000 MCG/1 ML VIAL IM ONE (11:32)
[2018-07-28 11:36] VITALS: BP 117/56
--- NOTE | 2018-07-28 11:36 | NUR ---
CHF CLINIC Discharge Instructions See e-MAR for any mediations given with this visit. Patient education given on disease process. Patient verbalized understanding. Previous labs reviewed. Patient discharged in stable condition with after care instructions and follow up appointment. Note B12 IM L deltoid admin by Minal PIEDRA Cardiodynamics performed by Minal PIEDRA and reviewed with patient by Laurie DAVID
[2018-07-28] MEDS: CYANOCOBALAMIN (B-12) 1000 MCG/1 ML VIAL ONE (12:00)
== END | disposition home or self-care (01) ==
LOC: CHF HDHVI 10:11
PROVIDERS: ATTEND Internal Medicine Cardiovascular Disease
DX: I13.2 Hypertensive heart and chronic kidney disease with heart failure and with stage 5 chronic kidney disease, or end stage renal disease (principal); I50.9 Heart failure, unspecified; N18.6 End stage renal disease; R53.1 Weakness; I27.21 Secondary pulmonary arterial hypertension; R53.83 Other fatigue; I25.10 Atherosclerotic heart disease of native coronary artery without angina pectoris; J44.9 Chronic obstructive pulmonary disease, unspecified; M10.9 Gout, unspecified; E78.5 Hyperlipidemia, unspecified; E03.9 Hypothyroidism, unspecified; E66.01 Morbid (severe) obesity due to excess calories; E11.22 Type 2 diabetes mellitus with diabetic chronic kidney disease; E11.40 Type 2 diabetes mellitus with diabetic neuropathy, unspecified; M19.90 Unspecified osteoarthritis, unspecified site; Z90.710 Acquired absence of both cervix and uterus; Z99.2 Dependence on renal dialysis; Z79.82 Long term (current) use of aspirin; Z68.30 Body mass index [BMI] 30.0-30.9, adult; Z87.891 Personal history of nicotine dependence; Z79.899 Other long term (current) drug therapy; Z86.73 Personal history of transient ischemic attack (TIA), and cerebral infarction without residual deficits
CPT/HCPCS: 93701; 96372; G0463

== ENCOUNTER → 2018-08-18 | Outpatient (CLI) | payer MEDICARE, MEDICAID ==
[2018-08-18 12:22] LABS: Basophils # (auto) 0.1 uL; Basophils % (auto) 1.7 % (0.0-2.0); Eosinophils # (auto) 0.2 uL; Eosinophils % (auto) 4.3 % (0.0-7.0); Hematocrit 33.1 % (36.0-46.0); Hemoglobin 10.8 g/dL (12.2-16.2); Lymphocytes # (auto) 0.8 uL; Lymphocytes % (auto) 22.4 % (10.0-50.0); Mean Corpuscular Hgb Conc. 32.5 g/dL (32.0-36.0); Mean Corpuscular Volume 98.3 fL (80.0-100.0); Monocytes # (auto) 0.6 uL; Neutrophils % (auto) 55.6 % (37.0-80.0); Platelet Count (auto) 230 10^3/uL (140-450); Red Blood Cells 3.37 10^6/uL (4.0-5.20); Red Cell Distribution Width 18.7 % (11.8-14.3); White Blood Cell 3.5 10^3/uL (4.4-10.8)
== END | disposition home or self-care (01) ==
LOC: Rad HDHVI 09:52
PROVIDERS: ATTEND Internal Medicine
DX: I08.1 Rheumatic disorders of both mitral and tricuspid valves (principal); R70.0 Elevated erythrocyte sedimentation rate; G89.29 Other chronic pain; I12.0 Hypertensive chronic kidney disease with stage 5 chronic kidney disease or end stage renal disease; E11.22 Type 2 diabetes mellitus with diabetic chronic kidney disease; N18.6 End stage renal disease; Z98.61 Coronary angioplasty status
CPT/HCPCS: 36415; 85025; 85652; 86141; 93306

== ENCOUNTER → 2018-09-01 | Outpatient (CLI) | payer MEDICARE, MEDICAID ==
[~2018-09-01] MED LIST changes: -AMLO5TAB13 PO; +AMLO5TAB15 PO; +ASPI-404 PO; -ASPI81TA27 PO; +CYANOCOBALAMIN (B-12) 1000 MCG/1 ML VIAL IM ONE; +CYANOCOBALAMIN (B-12) 1000 MCG/1 ML VIAL ONE; +SODIUM CHLORIDE 0.9% 500 ML IV ONE
--- NOTE | 2018-09-01 09:50 | NUR ---
CHF PT ARRIVED AT THE CHF CLINIC FOR PAH F/U, CARDIODYNAMICS AND 6MWT. PT A/O X 3 O2 SATS 85% BLOOD PRESSURE 87/36 ORDERS RECEIVED TO START NS 500ML @ 250ML/HR/. PT PLACED ON 2 LITERS
[2018-09-01 09:51] VITALS: BP 102/43
--- NOTE | 2018-09-01 10:30 | NUR ---
STAT LABS STAT LABS SENT
--- NOTE | 2018-09-01 10:45 | NUR ---
IV insertion IV access obtained, via clean sterile technique by inserting 22 gauge catheter at LFA after attempt(s). IV secured properly. No trauma to site. Patient tolerated procedure well.
[2018-09-01 11:39] LABS: Albumin 3.2 g/dL (3.4-5.0); Calcium 6.3 mg/dL (8.5-10.1); Magnesium 2.5 mg/dL (1.6-2.6); Potassium 4.5 mmol/L (3.5-5.1)
[2018-09-01 11:40] LABS: Basophils # (auto) 0 uL; Basophils % (auto) 0.3 % (0.0-2.0); Eosinophils # (auto) 0.2 uL; Eosinophils % (auto) 6.1 % (0.0-7.0); Hematocrit 30.8 % (36.0-46.0); Hemoglobin 10.1 g/dL (12.2-16.2); Lymphocytes # (auto) 0.7 uL; Lymphocytes % (auto) 21.3 % (10.0-50.0); Mean Corpuscular Hemoglobin 32.8 pg (28.0-32.0); Mean Corpuscular Hgb Conc. 32.7 g/dL (32.0-36.0); Mean Corpuscular Volume 100.3 fL (80.0-100.0); Monocytes # (auto) 0.4 uL; Monocytes % (auto) 14.2 % (0.0-12.0); Neutrophils # (auto) 1.8 uL; Neutrophils % (auto) 58.1 % (37.0-80.0); Platelet Count (auto) 195 10^3/uL (140-450); Red Blood Cells 3.07 10^6/uL (4.0-5.20); Red Cell Distribution Width 17.9 % (11.8-14.3); White Blood Cell 3.2 10^3/uL (4.4-10.8)
[2018-09-01 11:41] LABS: BUN/Creatinine Ratio 5.2; Bilirubin, Total 0.5 mg/dL (0.2-1.0); Phosphorus 5.8 mg/dL (2.5-4.90); Total Protein 6.2 g/dL (6.4-8.2)
--- NOTE | 2018-09-01 12:20 | NUR ---
IV removal IV DC'd with sterile technique, catheter fully intact. Pressure dressing applied to site. Patient tolerated procedure well. Discharged with aftercare instructions per MD. NOTE:
[2018-09-01 12:37] VITALS: BP 112/56
--- NOTE | 2018-09-01 12:40 | NUR ---
Discharge Instructions See e-MAR for any mediations given with this visit. Patient education given on disease process. Patient verbalized understanding. Previous labs reviewed. Patient discharged in stable condition with after care instructions and follow up appointment. MEDICATIONS 1050 START TIME NS 250 ML OVER 1 HR 1200 STOP NS VITAMIN B12 1000MCG IM X 1 LEFT DELTOID
[2018-09-01 15:52] LABS: Urine Bacteria FEW /hpf (None Seen); Urine Blood Negative /uL (Negative); Urine Budding Yeast OCCASIONAL /hpf (None Seen); Urine Specific Gravity 1.011 (1.001-1.035); Urine WBC 10 /hpf (0 - 5)
== END | disposition home or self-care (01) ==
LOC: CHF HDHVI 09:57
PROVIDERS: ATTEND Internal Medicine Cardiovascular Disease
DX: I13.2 Hypertensive heart and chronic kidney disease with heart failure and with stage 5 chronic kidney disease, or end stage renal disease (principal); E11.22 Type 2 diabetes mellitus with diabetic chronic kidney disease; N18.6 End stage renal disease; I50.9 Heart failure, unspecified; I27.21 Secondary pulmonary arterial hypertension; I25.10 Atherosclerotic heart disease of native coronary artery without angina pectoris; I95.9 Hypotension, unspecified; E83.30 Disorder of phosphorus metabolism, unspecified; R53.83 Other fatigue; R09.02 Hypoxemia; G89.29 Other chronic pain; I70.0 Atherosclerosis of aorta; R06.02 Shortness of breath; Z99.2 Dependence on renal dialysis
CPT/HCPCS: 36415; 71046; 80053; 81001; 83735; 83880; 84100; 85025; 93701; 96360; 96372; G0463; J3420; J7040; 94618

== ENCOUNTER → 2018-09-08 | Outpatient (CLI) | payer MEDICARE, MEDICAID ==
[~2018-09-08] MED LIST changes: -CYANOCOBALAMIN (B-12) 1000 MCG/1 ML VIAL IM ONE; -CYANOCOBALAMIN (B-12) 1000 MCG/1 ML VIAL ONE; -SODIUM CHLORIDE 0.9% 500 ML IV ONE
[2018-09-08 09:54] VITALS: BP 156/72
--- NOTE | 2018-09-08 09:54 | NUR ---
CHF PT ARRIVED TO THE CHF CLINIC FOR FOLLOW UP AFTER 1 WEEK SHORT OF BREATH, STATES SHE HAS BEEN DOING ALOT. SATS 88% ON ROOM AIR PLACED ON 2 LITERS VSS STABLE PATIENT IN NO DISTRESS AT THIS TIME
--- NOTE | 2018-09-08 11:00 | NUR ---
Discharge Instructions See e-MAR for any mediations given with this visit. Patient education given on disease process. Patient verbalized understanding. Previous labs reviewed. Patient discharged in stable condition with after care instructions and follow up appointment. PT REFERRED TO [facility] AND FOLLOW UP IN TWO WEEKS. PT IN STABLE CONDITION
== END | disposition home or self-care (01) ==
LOC: CHF HDHVI 09:53
PROVIDERS: ATTEND Internal Medicine Cardiovascular Disease
DX: I25.10 Atherosclerotic heart disease of native coronary artery without angina pectoris (principal); J98.4 Other disorders of lung; R59.9 Enlarged lymph nodes, unspecified; I12.0 Hypertensive chronic kidney disease with stage 5 chronic kidney disease or end stage renal disease; E11.22 Type 2 diabetes mellitus with diabetic chronic kidney disease; N18.6 End stage renal disease
CPT/HCPCS: 71250; G0463

== ENCOUNTER → 2018-09-17 | Outpatient (CLI) | payer MEDICARE, MEDICAID | END | disposition home or self-care (01) | LOC: XY 10:27 | PROVIDERS: ATTEND Internal Medicine | DX: J98.11 Atelectasis (principal); I70.0 Atherosclerosis of aorta; R09.02 Hypoxemia; J98.8 Other specified respiratory disorders; I26.99 Other pulmonary embolism without acute cor pulmonale | CPT/HCPCS: 71045; 78582; A9540; A9558 ==

== ENCOUNTER → 2018-10-06 | Outpatient (CLI) | payer MEDICARE, MEDICAID ==
[~2018-10-06] MED LIST changes: +CYANOCOBALAMIN (B-12) 1000 MCG/1 ML VIAL IM ONE; +CYANOCOBALAMIN (B-12) 1000 MCG/1 ML VIAL ONE
[2018-10-06 10:44] VITALS: BP 177/88
[2018-10-06 11:15] VITALS: BP 152/70
--- NOTE | 2018-10-06 11:15 | NUR ---
IN FOR PAH FOLLOWUP. WITHOUT DISTRESS. WITHOUT DISCOMFORT. CARDIODYNAMICS DONE AND REVIEWED, CHANGES CORRELATE TO PTS BP ELEVATION. STATES HAS NOT TAKEN HER BP MEDS YET TODAY SINCE SHE JUST FINISHED DIALYSIS. PT TO TAKE BP MEDS UPON ARRIVAL HOME. NO MED CHANGES. NO LABS. PT REPORTS LABS DRAWN "LAST WEEK" AND WILL BRING COPIES OF RECENTS. MEDICATION ADMINISTRATION VIT B12 1000 MCG IM TO LEFT DELTOID CARDIODYNAMICS
== END | disposition home or self-care (01) ==
LOC: CHF HDHVI 11:01
PROVIDERS: ATTEND Internal Medicine Cardiovascular Disease
DX: I27.21 Secondary pulmonary arterial hypertension (principal); I13.2 Hypertensive heart and chronic kidney disease with heart failure and with stage 5 chronic kidney disease, or end stage renal disease; E11.22 Type 2 diabetes mellitus with diabetic chronic kidney disease; N18.6 End stage renal disease; I50.9 Heart failure, unspecified; I25.10 Atherosclerotic heart disease of native coronary artery without angina pectoris; I26.99 Other pulmonary embolism without acute cor pulmonale; G89.29 Other chronic pain
CPT/HCPCS: 93701; 96372; G0463; J3420

== ENCOUNTER → 2018-10-13 | Outpatient (CLI) | payer MEDICARE, MEDICAID ==
[~2018-10-13] MED LIST changes: -CYANOCOBALAMIN (B-12) 1000 MCG/1 ML VIAL IM ONE; -CYANOCOBALAMIN (B-12) 1000 MCG/1 ML VIAL ONE
== END | disposition home or self-care (01) ==
LOC: Rad HDHVI 07:52
PROVIDERS: ATTEND Internal Medicine
DX: R09.89 Other specified symptoms and signs involving the circulatory and respiratory systems (principal); I20.9 Angina pectoris, unspecified; J44.9 Chronic obstructive pulmonary disease, unspecified; Z87.891 Personal history of nicotine dependence
CPT/HCPCS: 93880

== ENCOUNTER → 2018-11-10 | Outpatient (CLI) | payer MEDICARE, MEDICAID ==
[~2018-11-10] MED LIST changes: +CYANOCOBALAMIN (B-12) 1000 MCG/1 ML VIAL IM ONE; +CYANOCOBALAMIN (B-12) 1000 MCG/1 ML VIAL ONE
[2018-11-10 09:52] VITALS: BP 173/70
--- NOTE | 2018-11-10 09:52 | NUR ---
CHF PT ARRIVED AT THE CHF CLINIC FOR MONTHLY F/U PAH. A/O X 4 0 DISTRESS VSS. PT HERE FOR CARDIODYNAMICS, 6 MINUTE WALK AND
--- NOTE | 2018-11-10 11:00 | NUR ---
6 MIN 6 MINUTE WALK TEST COMPLETED PT TOLERATED WELL 0 DISTRESS. IMPROVEMENT SINCE LAST TIME
--- NOTE | 2018-11-10 11:16 | NUR ---
Discharge Instructions See e-MAR for any mediations given with this visit. Patient education given on disease process. Patient verbalized understanding. Previous labs reviewed. Patient discharged in stable condition with after care instructions and follow up appointment. MEDICATIONS VIT B12 IM
[2018-11-10 11:17] VITALS: BP 166/78
== END | disposition home or self-care (01) ==
LOC: CHF HDHVI 09:48
PROVIDERS: ATTEND Internal Medicine Cardiovascular Disease
DX: I27.21 Secondary pulmonary arterial hypertension (principal); I13.2 Hypertensive heart and chronic kidney disease with heart failure and with stage 5 chronic kidney disease, or end stage renal disease; E11.22 Type 2 diabetes mellitus with diabetic chronic kidney disease; N18.6 End stage renal disease; I50.9 Heart failure, unspecified; I25.10 Atherosclerotic heart disease of native coronary artery without angina pectoris; I26.99 Other pulmonary embolism without acute cor pulmonale; E87.6 Hypokalemia; G89.29 Other chronic pain; R53.83 Other fatigue; J44.9 Chronic obstructive pulmonary disease, unspecified; Z87.891 Personal history of nicotine dependence
CPT/HCPCS: 36415; 84132; 93701; 94618; 96372; G0463; J3420

== ENCOUNTER → 2018-12-15 | Outpatient (CLI) | payer MEDICARE, MEDICAID ==
[2018-12-15 10:30] VITALS: BP 125/56
[2018-12-15 11:13] VITALS: BP 147/57
--- NOTE | 2018-12-15 11:13 | NUR ---
CHF CLINIC Discharge Instructions See e-MAR for any mediations given with this visit. Patient education given on disease process. Patient verbalized understanding. Previous labs reviewed. Patient discharged in stable condition with after care instructions and follow up appointment. NOTE CARDIODYNAMICS PERFORMED BY BREANA PIEDRA REVIEWED BY DR LASSITER. B12 IM L DELTOID. PAH MEDICATIONS TO REMAIN THE SAME.
== END | disposition home or self-care (01) ==
LOC: CHF HDHVI 10:27
PROVIDERS: ATTEND Internal Medicine Cardiovascular Disease
DX: I13.2 Hypertensive heart and chronic kidney disease with heart failure and with stage 5 chronic kidney disease, or end stage renal disease (principal); E11.22 Type 2 diabetes mellitus with diabetic chronic kidney disease; N18.6 End stage renal disease; I50.9 Heart failure, unspecified; I27.21 Secondary pulmonary arterial hypertension; I25.119 Atherosclerotic heart disease of native coronary artery with unspecified angina pectoris; R53.83 Other fatigue; R06.02 Shortness of breath; J44.9 Chronic obstructive pulmonary disease, unspecified; G89.29 Other chronic pain; Z85.41 Personal history of malignant neoplasm of cervix uteri; Z87.891 Personal history of nicotine dependence; Z90.710 Acquired absence of both cervix and uterus
CPT/HCPCS: 93701; 96372; G0463; J3420

== ENCOUNTER → 2018-12-21 | Outpatient (CLI) | payer MEDICARE, MEDICAID ==
[~2018-12-21] MED LIST changes: -CYANOCOBALAMIN (B-12) 1000 MCG/1 ML VIAL IM ONE; -CYANOCOBALAMIN (B-12) 1000 MCG/1 ML VIAL ONE
== END | disposition home or self-care (01) ==
LOC: Rad HDHVI 13:31
PROVIDERS: ATTEND Internal Medicine Cardiovascular Disease
DX: I07.1 Rheumatic tricuspid insufficiency (principal); I20.9 Angina pectoris, unspecified; J44.9 Chronic obstructive pulmonary disease, unspecified; I12.9 Hypertensive chronic kidney disease with stage 1 through stage 4 chronic kidney disease, or unspecified chronic kidney disease; E11.22 Type 2 diabetes mellitus with diabetic chronic kidney disease; N18.6 End stage renal disease
CPT/HCPCS: 93306

== ENCOUNTER → 2019-01-21 | Outpatient (CLI) | payer MEDICARE, MEDICAID ==
[~2019-01-21] MED LIST changes: +CYANOCOBALAMIN (B-12) 1000 MCG/1 ML VIAL IM ONE; +CYANOCOBALAMIN (B-12) 1000 MCG/1 ML VIAL ONE
[2019-01-21 12:00] VITALS: BP 107/49
[2019-01-21 13:00] VITALS: BP 124/64
--- NOTE | 2019-01-21 13:00 | NUR ---
CHF Clinic Discharge Instructions See e-MAR for any mediations given with this visit. Patient education given on disease process. Patient verbalized understanding. Previous labs reviewed. Patient discharged in stable condition with after care instructions and follow up appointment one month. Note B12 IM L deltoid admin by Laurie DAVID Cardiodynamics reviewed by Saba DAVID
== END | disposition home or self-care (01) ==
LOC: CHF HDHVI 12:17
PROVIDERS: ATTEND Internal Medicine Cardiovascular Disease
DX: I13.2 Hypertensive heart and chronic kidney disease with heart failure and with stage 5 chronic kidney disease, or end stage renal disease (principal); I50.9 Heart failure, unspecified; N18.6 End stage renal disease; I27.21 Secondary pulmonary arterial hypertension; J44.9 Chronic obstructive pulmonary disease, unspecified; E11.22 Type 2 diabetes mellitus with diabetic chronic kidney disease; I25.10 Atherosclerotic heart disease of native coronary artery without angina pectoris; G89.29 Other chronic pain; Z90.710 Acquired absence of both cervix and uterus; Z87.891 Personal history of nicotine dependence
CPT/HCPCS: 93701; 96372; G0463; J3420

== ENCOUNTER → 2019-02-23 | Outpatient (CLI) | payer MEDICARE, MEDICAID ==
[~2019-02-23] MED LIST changes: -CYANOCOBALAMIN (B-12) 1000 MCG/1 ML VIAL IM ONE
[2019-02-23 11:30] VITALS: BP 148/77
[2019-02-23] MEDS: CYANOCOBALAMIN (B-12) 1000 MCG/1 ML VIAL IM ONE (11:43)
[2019-02-23 11:52] VITALS: BP 148/77
== END | disposition home or self-care (01) ==
LOC: CHF HDHVI 11:02
PROVIDERS: ATTEND Internal Medicine Cardiovascular Disease
DX: I13.2 Hypertensive heart and chronic kidney disease with heart failure and with stage 5 chronic kidney disease, or end stage renal disease (principal); N18.6 End stage renal disease; I50.9 Heart failure, unspecified; I25.10 Atherosclerotic heart disease of native coronary artery without angina pectoris; E11.22 Type 2 diabetes mellitus with diabetic chronic kidney disease; J44.9 Chronic obstructive pulmonary disease, unspecified; G89.29 Other chronic pain; I27.21 Secondary pulmonary arterial hypertension; Z87.891 Personal history of nicotine dependence; Z90.710 Acquired absence of both cervix and uterus
CPT/HCPCS: 93701; 96372; G0463; J3420

== ENCOUNTER → 2019-03-23 | Outpatient (CLI) | payer MEDICARE, MEDICAID ==
[~2019-03-23] MED LIST changes: +CYANOCOBALAMIN (B-12) 1000 MCG/1 ML VIAL IM ONE
[2019-03-23 10:00] VITALS: BP 120/55
[2019-03-23 10:30] VITALS: BP 118/53
--- NOTE | 2019-03-23 10:30 | NUR ---
Discharge Instructions See e-MAR for any mediations given with this visit. Patient education given on disease process. Patient verbalized understanding. Previous labs reviewed. Patient discharged in stable condition with after care instructions and follow up appointment. MEDICATIONS VITAMIN B12 1000 MCG IM X 1 LEFT DELTOID
[2019-03-23 12:04] LABS: Basophils # (auto) 0 uL; Basophils % (auto) 1.3 % (0.0-2.0); Eosinophils # (auto) 0.2 uL; Eosinophils % (auto) 6.9 % (0.0-7.0); Hematocrit 32.2 % (36.0-46.0); Hemoglobin 10.5 g/dL (12.2-16.2); Lymphocytes # (auto) 0.6 uL; Lymphocytes % (auto) 22.5 % (10.0-50.0); Mean Corpuscular Hgb Conc. 32.5 g/dL (32.0-36.0); Mean Corpuscular Volume 101.5 fL (80.0-100.0); Monocytes # (auto) 0.6 uL; Monocytes % (auto) 22.6 % (0.0-12.0); Neutrophils # (auto) 1.3 uL; Neutrophils % (auto) 46.7 % (37.0-80.0); Nucleated Red Blood Cells % 0.1 %; Platelet Count (auto) 158 10^3/uL (140-450); Red Blood Cells 3.17 10^6/uL (4.0-5.20); Red Cell Distribution Width 16.4 % (11.8-14.3); White Blood Cell 2.7 10^3/uL (4.4-10.8)
== END | disposition home or self-care (01) ==
LOC: CHF HDHVI 09:59
PROVIDERS: ATTEND Internal Medicine
DX: I27.21 Secondary pulmonary arterial hypertension (principal); I13.2 Hypertensive heart and chronic kidney disease with heart failure and with stage 5 chronic kidney disease, or end stage renal disease; E11.22 Type 2 diabetes mellitus with diabetic chronic kidney disease; N18.6 End stage renal disease; I50.9 Heart failure, unspecified; I25.10 Atherosclerotic heart disease of native coronary artery without angina pectoris; D64.9 Anemia, unspecified; J44.9 Chronic obstructive pulmonary disease, unspecified; G89.29 Other chronic pain; Z99.2 Dependence on renal dialysis; Z87.891 Personal history of nicotine dependence; Z90.710 Acquired absence of both cervix and uterus
CPT/HCPCS: 36415; 85025; 96372; G0463; J3420

== ENCOUNTER → 2019-04-27 | Outpatient (CLI) | payer MEDICARE, MEDICAID ==
[2019-04-27 11:30] VITALS: BP 121/69
[2019-04-27 12:01] VITALS: BP 133/77
== END | disposition home or self-care (01) ==
LOC: CHF HDHVI 11:15
PROVIDERS: ATTEND Internal Medicine
DX: I27.21 Secondary pulmonary arterial hypertension (principal); I13.0 Hypertensive heart and chronic kidney disease with heart failure and stage 1 through stage 4 chronic kidney disease, or unspecified chronic kidney disease; E11.22 Type 2 diabetes mellitus with diabetic chronic kidney disease; N18.6 End stage renal disease; I50.9 Heart failure, unspecified; R53.83 Other fatigue; I25.10 Atherosclerotic heart disease of native coronary artery without angina pectoris; J44.9 Chronic obstructive pulmonary disease, unspecified; G89.29 Other chronic pain; Z87.891 Personal history of nicotine dependence; Z90.710 Acquired absence of both cervix and uterus
CPT/HCPCS: 96372; G0463; J3420

== ENCOUNTER 2019-07-31 19:59 | Inpatient (IN) | payer MEDICARE, MEDICAID ==
[~2019-07-31] VITALS: Ht 175.3 cm; Wt 104.7 kg
[~2019-07-31 19:59] MED LIST changes: -ASPI-404 PO; +ASPI-543 PO; -CYANOCOBALAMIN (B-12) 1000 MCG/1 ML VIAL IM ONE; -CYANOCOBALAMIN (B-12) 1000 MCG/1 ML VIAL ONE
[2019-07-31] MEDS ORDERED: ONDANSETRON HCL 4 MG/2 ML VIAL IV ONE (22:00)
[2019-07-31] MEDS ORDERED: MORPHINE SULFATE 4 MG/ML SYR/VIAL IV ONE (22:00)
[2019-07-31 22:13] LABS: Basophils # (auto) 0.1 10 ^3/uL (0-0.2); Eosinophils # (auto) 0.1 10 ^3/uL (0-0.8); Hematocrit 35.7 % (36.0-46.0)
[2019-07-31 22:14] LABS: Basophils % (auto) 1.1 % (0.0-2.0); Eosinophils % (auto) 1.5 % (0.0-7.0); Hemoglobin 11.8 g/dL (12.2-16.2); Lymphocytes # (auto) 0.8 10 ^3/uL (0.4-5.4); Lymphocytes % (auto) 14.6 % (10.0-50.0); Mean Corpuscular Hemoglobin 33.4 pg (28.0-32.0); Mean Corpuscular Volume 101.2 fL (80.0-100.0); Monocytes # (auto) 0.6 10 ^3/uL (0-1.3); Monocytes % (auto) 10.6 % (0.0-12.0); Neutrophils # (auto) 4.1 10 ^3/uL (1.6-8.6); Neutrophils % (auto) 72.2 % (37.0-80.0); Nucleated Red Blood Cells % 0.1 %; Platelet Count (auto) 171 10^3/uL (140-450); Red Blood Cells 3.53 10^6/uL (4.0-5.20); White Blood Cell 5.6 10^3/uL (4.4-10.8)
[2019-07-31 22:24] LABS: INR 1.01 (0.9-1.15); Partial Thromboplastin Time 31.2 sec (23.64-32.05)
[2019-07-31 22:25] LABS: Potassium 4.8 mmol/L (3.5-5.1)
[2019-07-31 22:36] LABS: Albumin 3.9 g/dL (3.4-5.0); BUN/Creatinine Ratio 5.2; Bilirubin, Total 0.4 mg/dL (0.2-1.0); Calcium 7.8 mg/dL (8.5-10.1)
[2019-08-01] VITALS (13 sets, daily range): BP systolic 77–153; BP diastolic 39–59
[2019-08-01] MEDS ORDERED: LIDOCAINE 2% (LOCAL ANESTH.) PF 5ml SDV ONE (05:45)
[2019-08-01] MEDS ORDERED: ONDANSETRON HCL 4 MG/2 ML VIAL IV ONE (06:00)
[2019-08-01] MEDS ORDERED: HYDROmorphone HCL 2 MG/ML VL IV ONE (06:00)
[2019-08-01] MEDS ORDERED: ETOMIDATE (2MG/ML) 20ML VIAL IV ONE ×2 (06:06→06:45)
[2019-08-01] MEDS ORDERED: cefTRIAXone 1GM/50ML D5W 50 ML IV ONE (06:45)
[2019-08-01] MEDS ORDERED: SODIUM CHLORIDE 0.9% 1,000 ML IV ONE (09:30)
[2019-08-01 11:14] LABS: Basophils # (auto) 0 10 ^3/uL (0-0.2); Eosinophils # (auto) 0 10 ^3/uL (0-0.8); Eosinophils % (auto) 0.2 % (0.0-7.0); Lymphocytes # (auto) 0.4 10 ^3/uL (0.4-5.4); Lymphocytes % (auto) 7.9 % (10.0-50.0); White Blood Cell 5.7 10^3/uL (4.4-10.8)
[2019-08-01 11:19] LABS: Basophils % (auto) 0.2 % (0.0-2.0); Hematocrit 21.7 % (36.0-46.0); Mean Corpuscular Hemoglobin 33.9 pg (28.0-32.0); Mean Corpuscular Volume 105.9 fL (80.0-100.0); Monocytes # (auto) 0.7 10 ^3/uL (0-1.3); Monocytes % (auto) 11.8 % (0.0-12.0); Neutrophils # (auto) 4.5 10 ^3/uL (1.6-8.6); Neutrophils % (auto) 79.9 % (37.0-80.0); Platelet Count (auto) 133 10^3/uL (140-450); Red Blood Cells 2.05 10^6/uL (4.0-5.20)
[2019-08-01 11:26] LABS: Hemoglobin 6.9 g/dL (12.2-16.2)
[2019-08-01] MEDS ORDERED: NITROGLYCERIN 0.4 MG SL TAB SL PRN (14:15)
[2019-08-01] MEDS ORDERED: MORPHINE SULF INJ 2 MG/ML SYRINGE 1ML IV PRN ×2 (14:15)
[2019-08-01] MEDS ORDERED: ONDANSETRON HCL 4 MG/2 ML VIAL IV PRN (14:15)
[2019-08-01] MEDS: PIPERACILLIN-TAZOB 2.25GM 50 ML IV SCH ×2 (16:00→23:54)
--- NOTE | 2019-08-01 21:45 | NUR ---
Telemetry admit from ER [facility] admitted to Telemetry unit . Patient oriented to MARIA R GONSALEZ RN primary RN, unit, room, bed, and unit policies regarding patient care and visiting hours. Patient now on continuous telemetry monitoring, tele box # 66 and telemetry reading on arrival to unit is sinus rhythm at 78 beats per minute. Patient placed on bedside oxygen at 3.0 liters via nasal cannula, weighed by bedscale and encouraged to call if they need something. All questions and concerns addressed, patient verbalized understanding. Bed in lowest locked position, side rails up x2, call light within reach, bed alarm on. Will round every hour and as needed and continue to monitor.
--- NOTE | 2019-08-02 00:45 | NUR ---
Right upper arm fistula site assessed with charge nurse Renetta DAVID. Minimal bleeding from site noted. Photos taken for referrence. Wound care documentation filled out and placed in box for helper animal laboratory. Site cleaned and redressed with xeroform, sterile 2x2 gauze, abdominal pad, and microfoam tape. Right radial pulse palpable both before and after dressing change. Patient tolerated well. No s/s of distress. Will continue to monitor.
--- NOTE | 2019-08-02 04:47 | NUR ---
Notified by Brett CABRERA that patient's temperature is 101.8 Fahrenheit orally. Blankets removed, ice packs applied, temperature of the room decreased. Dr. Jeong paged at this time, awaiting response at this time. Will continue to monitor.
[2019-08-02 05:07] VITALS: BP 151/85
[2019-08-02] MEDS: PIPERACILLIN-TAZOB 2.25GM 50 ML IV SCH ×3 (05:19→21:44)
--- NOTE | 2019-08-02 06:01 | NUR ---
Temperature reassessed, 101.5 Fahrenheit orally. Cooling measures remain in place. Dr. Jeong paged again at this time. Will continue to monitor.
[2019-08-02 06:35] LABS: Basophils # (auto) 0 10 ^3/uL (0-0.2); Basophils % (auto) 0.4 % (0.0-2.0); Eosinophils # (auto) 0 10 ^3/uL (0-0.8); Eosinophils % (auto) 0.3 % (0.0-7.0); Hematocrit 34.7 % (36.0-46.0); Hemoglobin 11.3 g/dL (12.2-16.2); Lymphocytes # (auto) 0.5 10 ^3/uL (0.4-5.4); Lymphocytes % (auto) 8.2 % (10.0-50.0); Mean Corpuscular Hemoglobin 32.3 pg (28.0-32.0); Mean Corpuscular Hgb Conc. 32.6 g/dL (32.0-36.0); Mean Corpuscular Volume 99.2 fL (80.0-100.0); Monocytes # (auto) 0.6 10 ^3/uL (0-1.3); Monocytes % (auto) 10.9 % (0.0-12.0); Neutrophils # (auto) 4.6 10 ^3/uL (1.6-8.6); Neutrophils % (auto) 80.2 % (37.0-80.0); Nucleated Red Blood Cells % 0.1 %; Platelet Count (auto) 135 10^3/uL (140-450); Red Cell Distribution Width 17.6 % (11.8-14.3); White Blood Cell 5.7 10^3/uL (4.4-10.8)
--- NOTE | 2019-08-02 06:37 | NUR ---
Closing Note Patient lying in bed, awake and alert. No s/s of distress. Cooling measures remain in place. Bed in lowest locked position, side rails up x2, call light within reach. Will endorse care to dayshift RN.
[2019-08-02 07:06] LABS: BUN/Creatinine Ratio 5.9; Calcium 7.7 mg/dL (8.5-10.1)
[2019-08-02 07:22] LABS: Potassium 6.9 mmol/L (3.5-5.1)
--- NOTE | 2019-08-02 07:25 | NUR ---
CRITICAL LAB VALUE SPOKE WITH LAB, CRITICAL POTASSIUM OF 6.9 AND [address] OF 12.4. DR[address] MONTY PARRISH.
--- NOTE | 2019-08-02 07:35 | NUR ---
Opening Shift Note Assumed care of patient, awake and alert x3. No S/S of distress/SOB or pain. Updated on POC and instructed to call for assistance PRN. Bed locked in lowest position, side rails up x2, call light within reach, bed alarm on for safety. Will continue to monitor for changes Q1hr and PRN.
[2019-08-02] MEDS ORDERED: ACETAMINOPHEN 500 MG TAB PO PRN (08:15)
[2019-08-02 08:48] VITALS: BP 140/74
--- NOTE | 2019-08-02 08:52 | NUR ---
IV catheter found lying next to patient Patient states she rolled over and didn't notice that it had come out. Catheter fully intact. Pressure dressing applied to site. Will attempt to insert another IV.
[2019-08-02] MEDS ORDERED: HEPARIN 1,000 UNITS/ml 1ML VIAL IV ONE (10:30)
[2019-08-02 10:54] LABS: Uric Acid 6.6 mg/dL (2.6-6.0)
--- NOTE | 2019-08-02 11:00 | NUR ---
WOUND CARE NOTE: WOUND CARE IN TO SEE PATIENT PER PHOTOGRAPH OF A/V FISTULA SUTURED IN ER DUE TO EXCESSIVE BLEEDING. AT TIME OF ASSESSMENT, BEDSIDE NURSE ADVISED THAT DRESSING HAD JUST BEEN SECURED AFTER PROVIDER ASSESSMENT. BEDSIDE NURSE ADVISED OF MODERATE AMOUNT OF BLEEDING. DRESSING NOT DISTURBED AT THIS TIME. RECOMMEND: PRESSURE DRESSING TO CONTROL BLEEDING. CONTINUE WITH ANY DRESSING ORDERS PLACED BY HOSPITALIST. Addendum: 08/02/19 at 1813 by KAYY VILLANUEVA RN RN Amended: Links added.
--- NOTE | 2019-08-02 11:40 | NUR ---
IV insertion IV access obtained, via clean sterile technique by inserting 22 gauge catheter at left hand after 2 attempt(s). IV secured properly. No trauma to site. Patient tolerated procedure well.
[2019-08-02] MEDS: SODIUM ZIRCONIUM CYCL 10 GM PAK PO SCH ×3 (11:45→21:44)
[2019-08-02] MEDS: SEVELAMER 800 MG TAB PO SCH ×2 (11:45→18:35)
--- NOTE | 2019-08-02 11:47 | NUR ---
FERNANDO CATH PLACED AT BEDSIDE, 13CM FERNANDO CATHETER PLACED BY DR. LAWRENCE. HEPARIN FLUSHED. PATIENT TOLERATED WELL.
[2019-08-02] MEDS ORDERED: SODIUM CHL 0.9% 1000 ML BAG XX ONE (12:00)
[2019-08-02 12:40] VITALS: BP 150/67
--- NOTE | 2019-08-02 15:00 | NUR ---
WEB ANALYTICS DEVELOPER AT BEDSIDE
[2019-08-02 16:47] VITALS: BP 146/66
--- NOTE | 2019-08-02 18:35 | NUR ---
DIALYSIS COMPLETE. PER SORTING SUPERVISOR, 3L WAS REMOVED, PATIENT TOLERATED WELL. VITALS STABLE 110/53 HR 76. PATIENT SITTING UP FOR DINNER AT THIS TIME.
--- NOTE | 2019-08-02 18:53 | NUR ---
Closing Shift Note No S/S of distress or SOB. Patient is sitting up in bed eating dinner, respirations are even and unlabored. Will endorse care to noc shift RN
--- NOTE | 2019-08-02 19:15 | NUR ---
OPENING SHIFT NOTE: ASSUMED CARE OF PATIENT. PATIENT IS AWAKE, ALERT AND ORIENTED X 3 WITH PERIODS OF FORGETFULNESS. NO S/S OF SOB OR DISTRESS AND PATIENT DENIES PAIN. BED IS IN LOWEST LOCKED POSITION, TWO SIDE RAILS RAISED, CALL DOHERTY WITHIN REACH AND BED ALARM ACTIVATED FOR SAFETY. INSTRUCTED ON POC AND ENCOURAGED TO CALL FOR ASSISTANCE, ALL QUESTIONS AND CONCERNS ADDRESSED AT THIS TIME, PATIENT VERBALIZES UNDERSTANDING. CONTINUOUS TELEMETRY BOX# 66 AND CURRENT READING IS 72 BPM. WILL CONTINUE TO MONITOR Q1 HR AND PRN.
[2019-08-02 20:00] VITALS: BP 102/51
[2019-08-02 22:00] VITALS: BP 102/51
[2019-08-03 05:00] VITALS: BP 134/58
--- NOTE | 2019-08-03 05:21 | NUR ---
TEMP 100.3, COOLING MEASURES INITIATED.
[2019-08-03] MEDS: PIPERACILLIN-TAZOB 2.25GM 50 ML IV SCH ×3 (05:33→21:44)
[2019-08-03] MEDS: SODIUM ZIRCONIUM CYCL 10 GM PAK PO SCH (05:33)
--- NOTE | 2019-08-03 07:35 | NUR ---
Opening Shift Note Assumed care of patient, awake and alert. No S/S of distress/SOB or pain. Updated on POC and instructed to call for assistance PRN. Bed locked in lowest position, side rails up x2, call light within reach, bed alarm on for safety. Will continue to monitor for changes Q1hr and PRN.
[2019-08-03] MEDS: SEVELAMER 800 MG TAB PO SCH ×3 (08:00→18:08)
--- NOTE | 2019-08-03 09:05 | NUR ---
PATIENT TAKEN TO [facility] FOR PROCEDURE NO DISTRESS NOTED.
[2019-08-03 09:25] VITALS: BP 108/55
[2019-08-03] MEDS ORDERED: LIDOCAINE 2%HCL (LOCAL ANESTH.) INJ 20ML MDV ONE (09:26)
[2019-08-03] MEDS ORDERED: fentaNYL CITRATE 100 MCG/2 ML VL ONE (09:26)
[2019-08-03] MEDS ORDERED: MIDAZOLAM HCL 1MG/1ML-2 ML VIAL ONE ×2 (09:26→11:24)
[2019-08-03] MEDS ORDERED: CATHFLO ACTIVASE (ALTEPLASE) 2 MG VIAL IV ONE (10:33)
[2019-08-03] MEDS ORDERED: IODIXANOL 320MG/ML 100ML BTL IV ONE (11:09)
[2019-08-03] MEDS ORDERED: diphenhdrAMINE HCL 50 MG/1 ML VL ONE (11:22)
--- NOTE | 2019-08-03 14:00 | NUR ---
PATIENT RETURNED TO ROOM FOLLOWING GIMP BUTTONHOLE MACHINE OPERATOR PROCEDURE AFTER REPORT RECEIVED. PATIENT CONNECTED TO 2L O2 VIA NASAL CANNULA. NO S/S OF DISTRESS OR SOB. RIGHT UPPER ARM FISTULA SITE ASSESSED, NO DRAINAGE NOTED ON DRESSING. PER RN DO NOT APPLY PRESSURE DRESSING TO FISTULA SITE IT WILL CAUSE MORE HARM. CHANGE DRESSING NEEDED. VITALS STABLE AT THIS TIME BP 110/74, HR 64, RR 19, O2 SAT 95%. PATIENT PROVIDED WITH MEAL TRAY AND POSITIONED IN HIGH FOWLERS. PATIENT INSTRUCTED TO CALL FOR ASSISTANCE NEEDED. BED ALARM ON FOR SAFETY. WILL CONTINUE TO MONITOR Q1HR AND PRN.
--- NOTE | 2019-08-03 17:30 | NUR ---
RIGHT UPPER ARM DRESSING CHANGED MODERATE DRAINAGE NOTED, DRESSING WAS CHANGED WITH 4X4 AND TEGADERM APPLIED.
--- NOTE | 2019-08-03 19:15 | NUR ---
Opening Shift Note Received report from FRANKIE Parmar and assumed care of patient, awake and alert. No S/S of distress/SOB or pain. Instructed patient to call for assist if needed and patient verbalized understanding. Will continue to monitor.
[2019-08-03 22:00] VITALS: BP 123/81
[2019-08-04] VITALS (7 sets, daily range): BP systolic 94–134; BP diastolic 48–70
[2019-08-04] MEDS: ACETAMINOPHEN 500 MG TAB PO PRN ×2 (02:47→21:06)
[2019-08-04 06:02] LABS: Basophils # (auto) 0 10 ^3/uL (0-0.2); Basophils % (auto) 0.7 % (0.0-2.0); Eosinophils # (auto) 0.2 10 ^3/uL (0-0.8); Eosinophils % (auto) 3.7 % (0.0-7.0); Hematocrit 25.7 % (36.0-46.0); Hemoglobin 8.6 g/dL (12.2-16.2); Lymphocytes # (auto) 0.7 10 ^3/uL (0.4-5.4); Lymphocytes % (auto) 16.2 % (10.0-50.0); Mean Corpuscular Hemoglobin 32.7 pg (28.0-32.0); Mean Corpuscular Hgb Conc. 33.3 g/dL (32.0-36.0); Monocytes # (auto) 0.7 10 ^3/uL (0-1.3); Neutrophils # (auto) 2.5 10 ^3/uL (1.6-8.6); Neutrophils % (auto) 61.3 % (37.0-80.0); Platelet Count (auto) 143 10^3/uL (140-450); Red Blood Cells 2.62 10^6/uL (4.0-5.20); White Blood Cell 4.1 10^3/uL (4.4-10.8)
[2019-08-04] MEDS: PIPERACILLIN-TAZOB 2.25GM 50 ML IV SCH ×3 (06:06→21:05)
[2019-08-04 06:21] LABS: Potassium 5.1 mmol/L (3.5-5.1)
[2019-08-04 06:33] LABS: Albumin 2.7 g/dL (3.4-5.0); BUN/Creatinine Ratio 5.6; Bilirubin, Total 0.4 mg/dL (0.2-1.0); Calcium 7.2 mg/dL (8.5-10.1); Total Protein 5.9 g/dL (6.4-8.2)
--- NOTE | 2019-08-04 07:54 | NUR ---
patron attendant at bedside
[2019-08-04] MEDS: SEVELAMER 800 MG TAB PO SCH ×3 (08:58→17:26)
--- NOTE | 2019-08-04 09:23 | NUR ---
Opening Shift Note Assumed care of patient, awake and alert. No S/S of distress/SOB or pain. Instructed on POC and to call for assist PRN. Patient verbalized understanding. Will continue to monitor for changes Q1hr and PRN. Addendum: 08/04/19 at 1132 by PURVI AVERY RN RN Patient's bed in lowest position, 2 side rails up, items and call light within reach. Addendum: 08/04/19 at 1136 by PURVI AVERY RN RN Correct time 0730
[2019-08-04] MEDS ORDERED: SODIUM CHL 0.9% 1000 ML BAG XX ONE (09:45)
[2019-08-04] MEDS ORDERED: ALBUMIN 25% 100 ML IV PRN (09:45)
--- NOTE | 2019-08-04 11:34 | NUR ---
Dialysis complete. 2 L removed. Patient tolerated well. VSS: 130/81, HR-71. Will continue to monitor.
--- NOTE | 2019-08-04 12:55 | NUR ---
Nutrition Assessment Notes Please refer to link for full assessment notes. Est Energy needs: 5719-7393 kcals (23-25 kcal/kgBW) Est Protein needs: 104-114 gms/day (1.1-1.2 gm/kgBW) Will continue to monitor and reassess prn. Addendum: 08/04/19 at [address] Amended: Links added.
--- NOTE | 2019-08-04 17:00 | NUR ---
PT REQUESTED THAT P.T. EVALUATION BE DONE TOMORROW.
--- NOTE | 2019-08-04 18:00 | NUR ---
RIGHT UPPER ARM DRESSING CHANGED MODERATE DRAINAGE NOTED, DRESSING WAS CHANGED WITH 4X4 AND TEGADERM APPLIED.
--- NOTE | 2019-08-04 19:30 | NUR ---
Opening Shift Note Assumed care of patient, awake and alert. No S/S of distress/SOB, currently OOB to chair, on 2L via NC, lungs clear, IV patent and benign to left hand 22g. Instructed on POC and to call for assist PRN, call light within reach, able to demonstrate how to call for assist, right upper arm dressing has noted drainage, site marked to asses for further bleeding, right upper extremity has noted to be edematous and tender to touch, not requesting pain medication at this time, Geoff catheter site benign, will continue to monitor for changes Q1hr and PRN
--- NOTE | 2019-08-04 20:30 | NUR ---
ACTIVITY PT ASSISTED BACK TO BED, MODERATE ASSISTANCE, PT TOLERATED WELL, REPOSITIONED IN BED, CALL LIGHT PLACED WITHIN REACH CONT CARE
[2019-08-04] MEDS ORDERED: EPOETIN ALFA 10,000 UNIT/1 ML VIAL SC ONE (21:00)
--- NOTE | 2019-08-05 03:03 | NUR ---
DRESSING CHANGE TO RIGHT UPPER FISTULA SITE NOTED DRESSING SOILED PAST MARKINGS MADE EARLIER, DRESSING REMOVED, NOTED SITE EDEMATOUS, AND ECCHYMOSIS SURROUNDING SITE, MINIMAL SEROSANGUINEOUS DRAINAGE NOTED AND SITE IRRIGATED WITH NS, PADDED DRY WITH STERILE GAUZE, COVERED WITH ABD DRESSING AND COVERED WITH TEGADERM, PT TOLERATED WELL, CONT CARE
[2019-08-05 05:00] VITALS: BP 140/78
[2019-08-05] MEDS: PIPERACILLIN-TAZOB 2.25GM 50 ML IV SCH ×3 (06:20→22:28)
[2019-08-05 09:00] VITALS: BP 103/65
[2019-08-05] MEDS: SEVELAMER 800 MG TAB PO SCH ×3 (09:28→18:04)
[2019-08-05 13:00] VITALS: BP 97/54
--- NOTE | 2019-08-05 19:35 | NUR ---
Opening Shift Note Assumed care of patient, awake and alert and oriented x4. No S/S of distress/SOB, on 2L via NC, lungs clear. Instructed on POC and to call for assist PRN, call light within reach, able to demonstrate how to call for assist, right upper arm dressing has noted drainage and right arm/hand has noted to be edematous and tender to touch, right arm elevated on pillows, not requesting pain medication at this time, Geoff catheter to right neck, site benign, will continue to monitor for changes Q1hr and PRN
[2019-08-05 20:00] VITALS: BP 143/79
--- NOTE | 2019-08-05 21:25 | NUR ---
IV removal to left hand IV DC'd with clean sterile technique, catheter fully intact. Pressure dressing applied to site. Patient tolerated well.
--- NOTE | 2019-08-05 21:30 | NUR ---
IV insertion IV access obtained, via clean sterile technique by inserting 20 gauge catheter at left FA after a attempt. IV secured properly. No trauma to site. Patient tolerated well.
[2019-08-05 22:00] VITALS: BP 143/79
--- NOTE | 2019-08-05 22:15 | NUR ---
ACTIVITY ASSISTED PT TO BATHROOM, MIN/MODERATE ASSIST, USING PT OWN WALKER, PT TOLERATED WELL, NO C/O SOB, RETURNED TO BED, PULLED UP IN BED, ADELINE ELEVATED ON PILLOW, BED ALARM ACTIVATED AND CALL LIGHT WITHIN REACH, CONT CARE
[2019-08-05] MEDS: ACETAMINOPHEN 500 MG TAB PO PRN (22:27)
[2019-08-05] MEDS: MORPHINE SULF INJ 2 MG/ML SYRINGE 1ML IV PRN (23:30)
--- NOTE | 2019-08-06 01:00 | NUR ---
DRESSING CHANGE SITE NOTED TO BE SOILED, REMOVED DRESSING, SITE EDEMATOUS AND ECCHYMOSIS PRESENT, NO FOUL ODOR NOTED, UNEVEN EDGES NOTED TO WOUND, SITE IRRIGATED WITH NS, PADDED DRY WITH STERILE GAUZE, COVERED WITH ABD PAD AND SECURES WITH PRIMAPORE TAPE, NO PRESSURE APPLIED TO SITE, PT TOLERATED WELL, WAS MEDICATED PRIOR TO DRESSING CHANGE WITH MORPHINE PER PT REQUEST, CALL LIGHT WITHIN REACH, INSTRUCTED TO NOTIFY STAFF IMMEDIATELY IF DRESSING BECOMES SOILED OR PAIN RECURS, PT VERBALIZED UNDERSTANDING, BED ALARM ON, CONT CARE
[2019-08-06 05:00] VITALS: BP 119/64
[2019-08-06] MEDS: PIPERACILLIN-TAZOB 2.25GM 50 ML IV SCH ×3 (05:24→22:34)
[2019-08-06] MEDS ORDERED: SODIUM CHL 0.9% 1000 ML BAG XX ONE (07:00)
[2019-08-06] MEDS: SEVELAMER 800 MG TAB PO SCH ×3 (08:00→17:36)
--- NOTE | 2019-08-06 08:10 | NUR ---
RADIOLOGY STAFF NOTIFIED OF DIALYSIS PROCEDURE TO TAKE PLACE. PER RADIOLOGY: HEMODIALYSIS TO BE PERFORMED PRIOR TO FISTULA PROCEDURE. UNDERGROUND HEAVY EQUIPMENT OPERATOR AT BEDSIDE.
[2019-08-06 08:57] VITALS: BP 115/75
[2019-08-06 09:11] LABS: Basophils # (auto) 0 10 ^3/uL (0-0.2); Eosinophils # (auto) 0.1 10 ^3/uL (0-0.8); Hemoglobin 8.2 g/dL (12.2-16.2); Lymphocytes # (auto) 0.8 10 ^3/uL (0.4-5.4); Mean Corpuscular Hemoglobin 32.1 pg (28.0-32.0); Monocytes # (auto) 0.3 10 ^3/uL (0-1.3); Neutrophils # (auto) 1.5 10 ^3/uL (1.6-8.6); Red Blood Cells 2.55 10^6/uL (4.0-5.20); Red Cell Distribution Width 17.1 % (11.8-14.3); White Blood Cell 2.8 10^3/uL (4.4-10.8)
[2019-08-06 09:14] LABS: Basophils % (auto) 0.4 % (0.0-2.0); Hematocrit 24.6 % (36.0-46.0); Lymphocytes % (auto) 29.3 % (10.0-50.0); Mean Corpuscular Hgb Conc. 33.3 g/dL (32.0-36.0); Mean Corpuscular Volume 96.6 fL (80.0-100.0); Neutrophils % (auto) 54.3 % (37.0-80.0); Platelet Count (auto) 161 10^3/uL (140-450)
[2019-08-06 09:28] LABS: INR 1.07 (0.9-1.15); Partial Thromboplastin Time 58.9 sec (23.64-32.05)
[2019-08-06 09:30] LABS: Calcium 7.4 mg/dL (8.5-10.1); Potassium 4.2 mmol/L (3.5-5.1)
[2019-08-06 12:44] VITALS: BP 106/63
--- NOTE | 2019-08-06 12:56 | NUR ---
PT TAKEN TO SALES ENGINEER [employer] FOR PROCEDURE. TRANSPORTED VIA BED, NO S/S OF DISTRESS.
[2019-08-06] MEDS ORDERED: IODIXANOL 320MG/ML 100ML BTL IV ONE (13:18)
[2019-08-06] MEDS ORDERED: LIDOCAINE 2%HCL (LOCAL ANESTH.) INJ 20ML MDV ONE (13:18)
[2019-08-06] MEDS ORDERED: MIDAZOLAM HCL 1MG/1ML-2 ML VIAL ONE (14:01)
[2019-08-06] MEDS ORDERED: fentaNYL CITRATE 100 MCG/2 ML VL ONE (14:01)
[2019-08-06] MEDS ORDERED: HEPARIN SODIUM (PORCINE) 5000 UNITS/ML 1ML VIAL ONE (14:34)
[2019-08-06 16:44] VITALS: BP 113/70
[2019-08-06] MEDS: MORPHINE SULF INJ 2 MG/ML SYRINGE 1ML IV PRN (19:03)
--- NOTE | 2019-08-06 19:30 | NUR ---
Opening Shift Note Assumed care of patient, awake and alert. No S/S of distress/SOB/pain reported at this time, on 2L via NC, lungs clear, IV patent and benign to left FA 20g. Instructed on POC and to call for assist PRN, call light within reach, able to demonstrate how to call for assist, right upper arm dressing has small dry drainage, and marked to assess for further bleeding, right upper extremity has noted edematous, elevated on pillows, Tunneled catheter site to right upper chest benign, right neck dressing cdi, will continue to monitor for changes Q1hr and PRN
[2019-08-06 20:00] VITALS: BP 92/48
[2019-08-06] MEDS ORDERED: EPOETIN ALFA 10,000 UNIT/1 ML VIAL SC ONE (21:00)
[2019-08-06 22:04] VITALS: BP 92/48
[2019-08-06] MEDS: ACETAMINOPHEN 500 MG TAB PO PRN (22:35)
[2019-08-07] VITALS (7 sets, daily range): BP systolic 110–158; BP diastolic 63–82
--- NOTE | 2019-08-07 05:20 | NUR ---
AMBULATION PT ASSISTED TO BATHROOM, USING FWW, PT TOLERATED WELL, ASSISTED BACK TO BED, BED ALARM ON AND CALL LIGHT WITHIN REACH, CONT CARE
[2019-08-07] MEDS: PIPERACILLIN-TAZOB 2.25GM 50 ML IV SCH ×3 (05:32→22:03)
--- NOTE | 2019-08-07 07:28 | NUR ---
Opening Shift Note Assumed care of patient, awake and alert and oriented x4. No S/S of distress/SOB, on 2L via NC, denies pain at this time. Instructed on POC and to call for assist PRN, call light within reach, noted slight drainage on right upper arm dressing and right arm/hand is edematous and tender to touch, right arm elevated on pillows. Geoff catheter to right neck, site benign, will continue to monitor for changes Q1hr and PRN
[2019-08-07] MEDS: SEVELAMER 800 MG TAB PO SCH ×3 (08:51→18:00)
--- NOTE | 2019-08-07 10:59 | NUR ---
Nutrition Followup Note Wt 102.3kg Pt alert and oriented at time of rounds. Pt reports appetite is good. Pt with adequate po intake aeb pt with 81% po 08/03-08/05 per RN doc when diet is not NPO diet order. Pt received dialysis 08/03 per RN note. Est Energy needs: 4921-7057 kcals (23-25 kcal/kgBW) Est Protein needs: 104-114 gms/day (1.1-1.2 gm/kgBW) Will continue to monitor and reassess prn. Labs: BUn 52H, Creat 10.40H, Alb 2.7L, Ca 7.4L BM: 2 BM 08/05 per Rn doc Skin: BS 20 low risk, full details in [facility] worker doc. PES: Resolved: 1) Inadequate oral intake r/t pt with poor appetite aeb ave 38% PO intake 2) Food and nutrition related knowledge deficit r/t pt dietary non-compliance aeb pt request for renal diet information 3) Altered nutrition related lab values r/t current/chronic medical condition aeb elev RFTs, low GFR, hypocalcemia, mod hypoalbuminemia Comments Will continue to closely monitor pertinent labs, PO intake and skin status prn. Will followup in 3-5 days 1) Continue to closely monitor pt PO intake to meet at least 75% of meals 2) Continue current plan of care Expected Outcomes/Goals: Po intake >75% Pt labs to improve
--- NOTE | 2019-08-07 20:00 | NUR ---
Opening Shift Note Assumed care of patient, awake and alert. No S/S of distress/SOB or pain. Dressing to right arm with serous-sanguineous drainage. Instructed on POC and to call for assist PRN, will continue to monitor for changes Q1hr and PRN. Bed in low position and call light in reach.
[2019-08-08 05:58] VITALS: BP 132/71
[2019-08-08] MEDS: PIPERACILLIN-TAZOB 2.25GM 50 ML IV SCH ×3 (06:53→23:25)
[2019-08-08] MEDS: SEVELAMER 800 MG TAB PO SCH ×3 (08:00→19:01)
--- NOTE | 2019-08-08 08:00 | NUR ---
Opening Shift Note Assumed care of patient, awake and alert. No S/S of distress/SOB or pain. Bed is in low and locked position. Instructed patient to call for assist if needed and patient verbalized understanding. Will continue to monitor.
[2019-08-08 09:00] VITALS: BP 160/87
[2019-08-08 13:00] VITALS: BP_SYST 112; BP_SYST 134; BP_DIAS 61; BP_DIAS 69
--- NOTE | 2019-08-08 14:59 | NUR ---
CALLED DR MILLAN REGARDING DC PLAN. AWAITING CALLBACK.
[2019-08-08 17:00] VITALS: BP 157/80
--- NOTE | 2019-08-08 20:00 | NUR ---
open note assumed care of pt. upon entering room pt awake, alert and oriented x4. pt on room air no distress noted or expressed. pt denied any pain. pt updated on plan of care, aware of hemodialysis orders for the morning. pt no other questions at this time. pt bed locked, low and 2x rails up. call light in reach. this nurse to round q1hr and prn. pt encouraged to call as needed.
[2019-08-08 22:00] VITALS: BP 156/82
[2019-08-09 06:00] VITALS: BP 145/78
[2019-08-09] MEDS: PIPERACILLIN-TAZOB 2.25GM 50 ML IV SCH ×3 (07:03→18:27)
--- NOTE | 2019-08-09 07:30 | NUR ---
Opening Shift Note Assumed care of patient, awake and alert. No S/S of distress/SOB or pain reported at this time, on 2L via NC, lungs clear, IV patent and benign to left FA 20g. Instructed on POC and to call for assist PRN, call light within reach, able to demonstrate how to call for assist, right upper arm dressing CDI, right upper extremity has noted to be edematous and tender to touch, not requesting pain medication at this time, Tunneled catheter site benign, will continue to monitor for changes Q1hr and PRN
[2019-08-09 08:00] VITALS: BP 156/78
[2019-08-09] MEDS: SEVELAMER 800 MG TAB PO SCH ×2 (08:00→13:15)
[2019-08-09] MEDS ORDERED: SODIUM CHL 0.9% 1000 ML BAG XX ONE (08:15)
[2019-08-09 08:58] VITALS: BP 156/78
--- NOTE | 2019-08-09 09:30 | NUR ---
Attempted PT treatment, pt is currently receiving dialysis. Will attempt again later.
[2019-08-09 09:32] LABS: Basophils # (auto) 0 10 ^3/uL (0-0.2); Eosinophils # (auto) 0.2 10 ^3/uL (0-0.8); Eosinophils % (auto) 4.3 % (0.0-7.0); Lymphocytes # (auto) 0.9 10 ^3/uL (0.4-5.4); Lymphocytes % (auto) 20.3 % (10.0-50.0); Mean Corpuscular Hemoglobin 31.9 pg (28.0-32.0); Mean Corpuscular Hgb Conc. 33.2 g/dL (32.0-36.0); Mean Corpuscular Volume 96.2 fL (80.0-100.0); Monocytes # (auto) 0.4 10 ^3/uL (0-1.3); Monocytes % (auto) 8.3 % (0.0-12.0); Neutrophils # (auto) 2.8 10 ^3/uL (1.6-8.6); Neutrophils % (auto) 66.1 % (37.0-80.0); Nucleated Red Blood Cells % 0.1 %; Platelet Count (auto) 290 10^3/uL (140-450); Red Blood Cells 2.81 10^6/uL (4.0-5.20); Red Cell Distribution Width 17.5 % (11.8-14.3); White Blood Cell 4.2 10^3/uL (4.4-10.8)
[2019-08-09 11:03] LABS: BUN/Creatinine Ratio 1.9; Calcium 8.1 mg/dL (8.5-10.1); Potassium 3.8 mmol/L (3.5-5.1)
[2019-08-09 12:30] VITALS: BP 123/67
--- NOTE | 2019-08-09 12:30 | NUR ---
DIALYSIS COMPLETE 2L REMOVED, VS STABLE, PT ASYMPTOMATIC, SITTING OOB TO CHAIR, CONT CARE
[2019-08-09 16:35] VITALS: BP 146/81
[2019-08-09 17:06] VITALS: BP 146/81
--- NOTE | 2019-08-09 18:30 | NUR ---
DISCHARGE Discharge instructions given as ordered. Encourage to follow up with PMD as instructed. Appointment made to follow up with Dr Jeong 08/10/19 Tele call 12-8pm, pt aware .All questions and concerns addressed. Patient verbalized understanding. Medication reconciliation form completed and copy given to patient. IV removed with catheter intact, pressure dressing applied. Telemetry unit returned to ICU. Patient taken to vehicle via wheelchair with all personal belongings, accompanied by staff and family member. No distress noted at time of departure. Home health to follow up post discharge for wound care
--- NOTE | 2019-08-10 08:14 | NUR ---
Hotel Maintenance Engineer FRANKIE Ramirez advised me patient had discharge orders for home health for wound care and supplies. Contact patient regarding discharge order for home. Patient had no home health preference. Clinical information was faxed to [facility]. Per Mary with [facility] [phone] patient has been accepted and service to start within 24-48hrs upon d/c day. FRANKIE Ramirez provided supplies for patient.
== END 2019-08-09 18:25 | disposition home health service (06) | DRG 252 ==
LOC: ER 19:59 → TELE 20:00 → TELE-WESTW 08-01 21:52
PROVIDERS: ADMIT Internal Medicine; ATTEND Internal Medicine
PROC: 5A1D70Z Performance of Urinary Filtration, Intermittent, Less than 6 Hours Per Day (ICD-10-PCS; 2019-08-02)
PROC: 5A1D70Z Performance of Urinary Filtration, Intermittent, Less than 6 Hours Per Day (ICD-10-PCS; 2019-08-04)
PROC: 0JH63XZ Insertion of Tunneled Vascular Access Device into Chest Subcutaneous Tissue and Fascia, Percutaneous Approach (ICD-10-PCS; principal; 2019-08-06)
PROC: 5A1D70Z Performance of Urinary Filtration, Intermittent, Less than 6 Hours Per Day (ICD-10-PCS; 2019-08-06)
PROC: 02H633Z Insertion of Infusion Device into Right Atrium, Percutaneous Approach (ICD-10-PCS; 2019-08-06)
PROC: B5181ZA Fluoroscopy of Superior Vena Cava using Low Osmolar Contrast, Guidance (ICD-10-PCS; 2019-08-06)
PROC: B548ZZA Ultrasonography of Superior Vena Cava, Guidance (ICD-10-PCS; 2019-08-06)
PROC: B31HYZZ Fluoroscopy of Right Upper Extremity Arteries using Other Contrast (ICD-10-PCS; 2019-08-06)
PROC: B51WYZZ Fluoroscopy of Dialysis Shunt/Fistula using Other Contrast (ICD-10-PCS; 2019-08-06)
PROC: 3E03317 Introduction of Other Thrombolytic into Peripheral Vein, Percutaneous Approach (ICD-10-PCS; 2019-08-06)
PROC: 3E05317 Introduction of Other Thrombolytic into Peripheral Artery, Percutaneous Approach (ICD-10-PCS; 2019-08-06)
PROC: 03WY3JZ Revision of Synthetic Substitute in Upper Artery, Percutaneous Approach (ICD-10-PCS; 2019-08-06)
PROC: 05WY3JZ Revision of Synthetic Substitute in Upper Vein, Percutaneous Approach (ICD-10-PCS; 2019-08-06)
PROC: 5A1D70Z Performance of Urinary Filtration, Intermittent, Less than 6 Hours Per Day (ICD-10-PCS; 2019-08-09)
DX: T82.868A Thrombosis due to vascular prosthetic devices, implants and grafts, initial encounter (principal); N18.6 End stage renal disease; T82.510A Breakdown (mechanical) of surgically created arteriovenous fistula, initial encounter; I12.0 Hypertensive chronic kidney disease with stage 5 chronic kidney disease or end stage renal disease; Y84.1 Kidney dialysis as the cause of abnormal reaction of the patient, or of later complication, without mention of misadventure at the time of the procedure; D63.1 Anemia in chronic kidney disease; E87.5 Hyperkalemia; E11.22 Type 2 diabetes mellitus with diabetic chronic kidney disease; J44.9 Chronic obstructive pulmonary disease, unspecified; E78.5 Hyperlipidemia, unspecified; Y83.2 Surgical operation with anastomosis, bypass or graft as the cause of abnormal reaction of the patient, or of later complication, without mention of misadventure at the time of the procedure; G62.9 Polyneuropathy, unspecified; Z99.2 Dependence on renal dialysis; Z82.49 Family history of ischemic heart disease and other diseases of the circulatory system; Z82.3 Family history of stroke; Z83.3 Family history of diabetes mellitus
CPT/HCPCS: 36415; 36430; 36561; 37211; 37212; 71045; 73200; 76000; 76937; 76942; 77001; 80048; 80053; 82306; 83970; 84100; 84550; 85025; 85610; 85730; 86850; 86900; 86901; 86920; 87081; 90935; 96361; 96365; 96366; 96367; 96375; 97116; 97530; 99152; 99153; G0378; J0696; J0885; J1642; J2001; J2250; J2405; J2543; Q9967

== ENCOUNTER 2019-09-11 16:29 | Inpatient (IN) | payer MEDICARE, MEDICAID ==
[~2019-09-11] VITALS: Ht 175.3 cm; Wt 91.9 kg
[2019-09-12 00:22] LABS: Basophils # (auto) 0 10 ^3/uL (0-0.2); Basophils % (auto) 0.9 % (0.0-2.0); Eosinophils # (auto) 0 10 ^3/uL (0-0.8); Eosinophils % (auto) 0.1 % (0.0-7.0); Hematocrit 31.8 % (36.0-46.0); Hemoglobin 10.1 g/dL (12.2-16.2); Lymphocytes # (auto) 0.5 10 ^3/uL (0.4-5.4); Lymphocytes % (auto) 12.6 % (10.0-50.0); Mean Corpuscular Hemoglobin 31.5 pg (28.0-32.0); Mean Corpuscular Hgb Conc. 31.9 g/dL (32.0-36.0); Mean Corpuscular Volume 98.7 fL (80.0-100.0); Monocytes # (auto) 0.4 10 ^3/uL (0-1.3); Neutrophils # (auto) 3.1 10 ^3/uL (1.6-8.6); Neutrophils % (auto) 77.4 % (37.0-80.0); Nucleated Red Blood Cells % 0.2 %; Platelet Count (auto) 221 10^3/uL (140-450); Red Blood Cells 3.22 10^6/uL (4.0-5.20); Red Cell Distribution Width 18.3 % (11.8-14.3)
[2019-09-12 00:39] LABS: Albumin 3.3 g/dL (3.4-5.0); BUN/Creatinine Ratio 5.9; Calcium 7.1 mg/dL (8.5-10.1); Potassium 4.3 mmol/L (3.5-5.1)
[2019-09-12 00:50] LABS: Bilirubin, Total 0.3 mg/dL (0.2-1.0); Total Protein 6.7 g/dL (6.4-8.2)
[2019-09-12] MEDS ORDERED: ALBUTEROL SULF 2.5 MG/0.5ML(0.5%) NEB SOLN NEB PRN (02:00)
[2019-09-12] MEDS ORDERED: DOCUSATE SOD 100 MG CAP PO PRN (02:00)
[2019-09-12] MEDS ORDERED: IPRATROPIUM BROM 0.5 MG/2.5ML INH SOL NEB PRN (02:00)
[2019-09-12] MEDS ORDERED: DEXTROSE (50%) 50ML SYRG IV PRN (02:00)
[2019-09-12] MEDS: InsuLIN REG 1unit/0.01ml Soln (100units/ml) SC SCH ×5 (04:00→20:00)
[2019-09-12 04:50] LABS: Basophils # (auto) 0 10 ^3/uL (0-0.2); Eosinophils # (auto) 0 10 ^3/uL (0-0.8); Eosinophils % (auto) 0.5 % (0.0-7.0); Lymphocytes # (auto) 0.6 10 ^3/uL (0.4-5.4); Lymphocytes % (auto) 16.1 % (10.0-50.0); Mean Corpuscular Hemoglobin 31.8 pg (28.0-32.0); Mean Corpuscular Hgb Conc. 32.3 g/dL (32.0-36.0); Mean Corpuscular Volume 98.5 fL (80.0-100.0); Monocytes # (auto) 0.4 10 ^3/uL (0-1.3); Monocytes % (auto) 9.8 % (0.0-12.0); Neutrophils # (auto) 2.6 10 ^3/uL (1.6-8.6); Neutrophils % (auto) 72.6 % (37.0-80.0); Platelet Count (auto) 221 10^3/uL (140-450); Red Blood Cells 3.46 10^6/uL (4.0-5.20); Red Cell Distribution Width 18.1 % (11.8-14.3); White Blood Cell 3.6 10^3/uL (4.4-10.8)
[2019-09-12 04:55] VITALS: BP 162/79
--- NOTE | 2019-09-12 05:00 | NUR ---
MS admit from ER LANCE HUTCHINS admitted to [facility]. Patient oriented to ORTEGA WILSON, RN primary RN, unit, room, bed, and unit policies regarding patient care and visiting hours. Patient weighed by bedscale and encouraged to call if they need something. All questions and concerns addressed, patient verbalized understanding.
[2019-09-12 05:10] LABS: BUN/Creatinine Ratio 5.9; Calcium 7.3 mg/dL (8.5-10.1); Potassium 4.3 mmol/L (3.5-5.1)
[2019-09-12] MEDS: SILDENAFIL CITRATE 20 MG TAB PO SCH ×3 (06:35→23:03)
[2019-09-12] MEDS: ACCU-CHEK COMFORT CURVE STRIP VI SCH ×5 (06:35→20:30)
[2019-09-12 06:36] VITALS: BP 147/81
--- NOTE | 2019-09-12 07:30 | NUR ---
Opening shift note Assumed care of patient from NOC RN. Patient is AOx4, so s/s of distress or SOB noted. Bed is in lowest locked position, side rails up x2, and call light is within reach. Updated patient on plan of care and instructed patient to call for assistance, patient verbalized understanding. Will continue to monitor q1hr and PRN.
[2019-09-12] MEDS ORDERED: GABA100C9 PO (07:52)
[2019-09-12] MEDS ORDERED: CLOP75TA28 PO (07:52)
[2019-09-12] MEDS ORDERED: ALLO100T PO (07:52)
[2019-09-12 09:00] VITALS: BP 153/80
[2019-09-12] MEDS: SEVELAMER 800 MG TAB PO SCH ×3 (09:04→18:38)
[2019-09-12] MEDS: ATORVASTATIN 20 MG TAB PO SCH (09:05)
[2019-09-12] MEDS: GABAPENTIN 300 MG CAP PO SCH (09:06)
[2019-09-12] MEDS: MULTIPLE VITAMINS W/ MINERALS TAB PO SCH (09:06)
[2019-09-12] MEDS: ASPirin-EC 81 mg tab PO SCH (09:06)
[2019-09-12] MEDS: FUROSEMIDE 40 MG TAB PO SCH (09:09)
[2019-09-12] MEDS: amLODIPine BESYLATE 5 MG TAB PO SCH (09:09)
[2019-09-12] MEDS: cloNIDine HCL 0.1 MG TAB PO SCH (09:10)
[2019-09-12] MEDS: OXYBUTYNIN CHL 5 MG TAB PO SCH (09:11)
[2019-09-12] MEDS ORDERED: LISINOPRIL 20 MG TAB PO SCH (10:00)
[2019-09-12] MEDS ORDERED: COLCHICINE 0.6 MG CAP PO SCH (10:00)
--- NOTE | 2019-09-12 10:10 | NUR ---
Physician rounding Dr. Palmer at bedside, updated him on patient status. New order received, will follow through, will continue care.
--- NOTE | 2019-09-12 14:25 | NUR ---
Received call from Received call from Dr. Gil, updated MD on patient status. No new orders received. Will continue care.
--- NOTE | 2019-09-12 16:53 | NUR ---
Patient refused medication Patient refused 1600 insulin, patient stated "I don't want this, I don't take insulin at home." Educated patient on importance of medication, patient verbalized understanding but is still refusing medication. Will continue to monitor q1hr and PRN.
[2019-09-12 17:54] VITALS: BP 103/58
--- NOTE | 2019-09-12 19:17 | NUR ---
end of shift note Endorsed care to NOC RN. No s/s of distress or SOB noted.
--- NOTE | 2019-09-12 19:41 | NUR ---
Opening Shift Note Received report and assumed care of patient. Patient is awake and alert. No signs or symptoms of distress noted, patient currently denies pain. Instructed patient on plan of care and to call for assistance as needed. Will continue to monitor.
[2019-09-12 23:03] VITALS: BP 129/69
[2019-09-13] MEDS: InsuLIN REG 1unit/0.01ml Soln (100units/ml) SC SCH ×2 (04:00)
[2019-09-13] MEDS: ACETAMINOPHEN 325 MG TAB PO PRN (04:29)
--- NOTE | 2019-09-13 04:29 | NUR ---
Pain Medication Administration Patient complaining of leg pain 5/10. Patient requesting for Tylenol to be administered. Educated patient regarding pain level and pain medication. Patient verbalized understanding, continue to request Tylenol. Will administer pain medication per MD order. Will reassess pain level and will continue to monitor.
[2019-09-13] MEDS: ACCU-CHEK COMFORT CURVE STRIP VI SCH ×2 (04:30)
[2019-09-13 05:00] VITALS: BP 131/69
--- NOTE | 2019-09-13 05:29 | NUR ---
Pain Level Reassessment Patient's pain level reassessed to be 0/10. No signs or symptoms of distress noted. Will continue to monitor.
[2019-09-13 05:34] LABS: Basophils # (auto) 0 10 ^3/uL (0-0.2); Eosinophils # (auto) 0.1 10 ^3/uL (0-0.8); Hematocrit 31.8 % (36.0-46.0); Hemoglobin 10.2 g/dL (12.2-16.2); Lymphocytes # (auto) 0.8 10 ^3/uL (0.4-5.4); Lymphocytes % (auto) 22.8 % (10.0-50.0); Mean Corpuscular Hemoglobin 31.7 pg (28.0-32.0); Mean Corpuscular Hgb Conc. 32.2 g/dL (32.0-36.0); Mean Corpuscular Volume 98.7 fL (80.0-100.0); Monocytes # (auto) 0.4 10 ^3/uL (0-1.3); Monocytes % (auto) 11.3 % (0.0-12.0); Neutrophils # (auto) 2.3 10 ^3/uL (1.6-8.6); Neutrophils % (auto) 61.9 % (37.0-80.0); Platelet Count (auto) 216 10^3/uL (140-450); Red Blood Cells 3.22 10^6/uL (4.0-5.20); Red Cell Distribution Width 18.2 % (11.8-14.3); White Blood Cell 3.6 10^3/uL (4.4-10.8)
[2019-09-13 05:46] LABS: BUN/Creatinine Ratio 7.4; Calcium 7.1 mg/dL (8.5-10.1); Potassium 4.4 mmol/L (3.5-5.1)
[2019-09-13] MEDS: SILDENAFIL CITRATE 20 MG TAB PO SCH ×3 (05:57→21:56)
[2019-09-13 06:02] VITALS: BP 146/75
[2019-09-13] MEDS ORDERED: SODIUM CHL 0.9% 1000 ML BAG XX ONE (07:00)
[2019-09-13] MEDS: SEVELAMER 800 MG TAB PO SCH ×4 (08:43→17:54)
[2019-09-13 08:46] VITALS: BP 138/71
--- NOTE | 2019-09-13 09:19 | NUR ---
Received call from radiology, patient cannot have tunnel cath placed because she is covid positive. Radiology suggest ER Dr to do a Geoff cath at bedside. Let message with Dr Jeong for further instructions.
--- NOTE | 2019-09-13 09:21 | NUR ---
Received call from dialysis nurse who instructed me to call her when access is ready at [phone].
--- NOTE | 2019-09-13 09:30 | NUR ---
Per Dr johny pagan to call ER Doctor for alex kelly. Called ER, notified pocket secretary assembler who stated they would notify ER Dr and call me back.
[2019-09-13] MEDS: cloNIDine HCL 0.1 MG TAB PO SCH (10:00)
--- NOTE | 2019-09-13 10:30 | NUR ---
patient updated on plan of care per her request.
[2019-09-13] MEDS: ASPirin-EC 81 mg tab PO SCH (10:53)
[2019-09-13] MEDS: OXYBUTYNIN CHL 5 MG TAB PO SCH (10:53)
[2019-09-13] MEDS: ATORVASTATIN 20 MG TAB PO SCH (10:54)
[2019-09-13] MEDS: FUROSEMIDE 40 MG TAB PO SCH (10:54)
[2019-09-13] MEDS: GABAPENTIN 300 MG CAP PO SCH (10:54)
[2019-09-13] MEDS: MULTIPLE VITAMINS W/ MINERALS TAB PO SCH (10:54)
[2019-09-13] MEDS: amLODIPine BESYLATE 5 MG TAB PO SCH (10:55)
--- NOTE | 2019-09-13 10:55 | NUR ---
per Dr cyr I can consult pulmonology to place alex cath as well as ER Reconsulted pulmonology, to place alex cath.
[2019-09-13 11:40] LABS: Hepatitis A Ab IgM Negative; Hepatitis B Core IgM Negative; Hepatitis B Surface Antigen Negative (Negative); Hepatitis C Antibody Negative (Negative)
[2019-09-13 11:50] LABS: INR 1.08 (0.9-1.15)
--- NOTE | 2019-09-13 12:30 | NUR ---
Patient again updated on plan of care, still waiting for a consulting physician to place Geoff catheter.
[2019-09-13 12:43] VITALS: BP 146/89
--- NOTE | 2019-09-13 15:07 | NUR ---
Dr ochoa contacted me stated that he wouldn't be able to see patient to do procedure today. Notified Dr Jeong. No call back from ER doctor
--- NOTE | 2019-09-13 16:24 | NUR ---
Pt is an alert and oriented female that resides with her family. Pt uses a fww and is on dialysis with [facility]. Pts spouse recently passed and pt is a readmit for COVID-19. Provided emotional support and actively listened. Provided information on grief process and referred to CARE program for bereavement support. Will continue to monitor and provide intervention as needed. Addendum: 09/13/19 at 1624 by MANJIT HERNANDEZ Amended: Links added.
[2019-09-13 16:54] VITALS: BP 128/59
--- NOTE | 2019-09-13 17:00 | NUR ---
Patient updated that we are still waiting on consult for physician to place tunnel cath (Dr Medina ), I explained that we are trying multiple options to try to place catheter.
--- NOTE | 2019-09-13 17:39 | NUR ---
Per Dr. Jeong consult Dr Medina for tunnel Catheter placement.
[2019-09-13 22:00] VITALS: BP 140/75
[2019-09-14 05:00] VITALS: BP 145/79
[2019-09-14] MEDS: SILDENAFIL CITRATE 20 MG TAB PO SCH ×3 (05:30→21:58)
[2019-09-14 09:00] VITALS: BP 116/77
[2019-09-14] MEDS: ASPirin-EC 81 mg tab PO SCH (10:41)
[2019-09-14] MEDS: SEVELAMER 800 MG TAB PO SCH ×3 (10:41→17:59)
[2019-09-14] MEDS: cloNIDine HCL 0.1 MG TAB PO SCH (10:42)
[2019-09-14] MEDS: amLODIPine BESYLATE 5 MG TAB PO SCH (10:42)
[2019-09-14] MEDS: OXYBUTYNIN CHL 5 MG TAB PO SCH (10:43)
[2019-09-14] MEDS: ATORVASTATIN 20 MG TAB PO SCH (10:43)
[2019-09-14] MEDS: MULTIPLE VITAMINS W/ MINERALS TAB PO SCH (10:43)
[2019-09-14] MEDS: GABAPENTIN 300 MG CAP PO SCH (10:43)
[2019-09-14] MEDS: FUROSEMIDE 40 MG TAB PO SCH (10:44)
[2019-09-14 13:23] VITALS: BP 193/102
[2019-09-14 13:55] VITALS: BP 132/75
--- NOTE | 2019-09-14 13:55 | NUR ---
Elevated B/P reported on 1300 VS B/P reported on 1300 VS was 193/102. Blood pressure reassessed at this time, current BP 132/75. No further interventions needed.
[2019-09-14 17:00] VITALS: BP 136/75
--- NOTE | 2019-09-14 17:20 | NUR ---
Re-called surgical consult for cath insertion.
--- NOTE | 2019-09-14 19:30 | NUR ---
Opening Shift Note Assumed care of patient, awake and alert x4. Patient denies pain or shortness of pain at this time. No sign/symptoms of distress noted or verbalized at this time. Instructed on plan of care and encouraged patient to call for assistance as needed, patient verbalized understanding. Bed is locked in lowest position, side rails x 2 are up, and call light is within reach.
--- NOTE | 2019-09-14 19:40 | NUR ---
Spoke with Radiologist Re: Tunnel Dialysis Catheter Called and spoke with radiology regarding consult for tunnel dialysis catheter. Per radiology, they are able to place tunnel dialysis catheter for covid positive patients, they would just have to gown up. Per radiology, reconsult radiologist to place tunnel dialysis catheter and they will work on it tomorrow. Will notify Dr. Jeong.
--- NOTE | 2019-09-14 20:10 | NUR ---
Dr. Bragg at the Bedside Dr. Bragg at the bedside discussing Geoff catheter placement with patient. Per patient she does not want a Geoff catheter placed at this time. Patient states she wants a tunnel dialysis catheter. Dr. Bragg informed patient that he does not do tunnel dialysis catheter but he can place a Geoff catheter at this time. Patient refused Geoff catheter placement at this time and states she wants to wait to get a tunnel dialysis catheter instead. Per Dr. Bragg have radiologist consulted for tunnel dialysis catheter placement.
--- NOTE | 2019-09-14 21:00 | NUR ---
Notified Dr. Jeong that Dr. Bragg came and saw the patient and offered to place a Geoff catheter but patient refused. Dr. Jeong made aware that patient is requesting a tunnel dialysis catheter and order was received to reconsult radiology for tunnel dialysis catheter by Dr. Bragg due to Dr. Bragg not being able to place tunnel dialysis catheter. Dr. Jeong made aware that this RN followed up with radiology and per radiology they are able to place tunnel dialysis catheter for covid positive patients. Orders to reconsult radiology for tunnel dialysis catheter received. Order verified. Will carry out order as received.
[2019-09-14 21:44] VITALS: BP 135/70
--- NOTE | 2019-09-14 22:28 | NUR ---
FOUND PT ON R/A W/ SPO2 88%, SHE WAS PLACED ON A 2L NC @ THIS TIME. SPO2 QUICKLY CAME UP TO 93%. NO DISTRESS NOTED. Addendum: 09/14/19 at 2230 by ALVIN SALDIVAR RT Amended: Links added.
--- NOTE | 2019-09-15 00:53 | NUR ---
Rounds Patient is laying in bed, eyes closed, with even and unlabored respirations. Patient is on 2L/min NC, SPO2: 97% at this time. No sign/symptoms of distress noted or verbalized at this time.
[2019-09-15 04:47] VITALS: BP 129/72
[2019-09-15] MEDS: SILDENAFIL CITRATE 20 MG TAB PO SCH ×3 (06:30→20:50)
--- NOTE | 2019-09-15 06:30 | NUR ---
Rounds Patient sitting on the edge of the bed talking on the phone. Patient's SPO2 is 92% on room air at this time. No sign/symptoms of distress noted or verbalized at this time. Patient denies shortness of breath at this time.
--- NOTE | 2019-09-15 07:30 | NUR ---
Opening Shift Note Assumed care of patient, awake and alert. No S/S of distress/SOB or pain. Instructed on POC and to call for assist PRN, will continue to monitor for changes Q1hr and PRN. Bed in low and locked position, rails up x2, no-slip socks on.
[2019-09-15] MEDS: SEVELAMER 800 MG TAB PO SCH ×3 (08:00→18:00)
[2019-09-15 08:41] VITALS: BP 140/76
--- NOTE | 2019-09-15 09:00 | NUR ---
REFUSING CHELSEA CATH PATIENT STILL REFUSING PLACEMENT OF CHELSEA CATH, CALL TO RADIOLOGY AND TO PLACE A TUNNELED CATHETER THE PATIENT WOULD NEED TO GO TO [facility] BUT THEY ARE NOT TAKING COVID POSITIVE PATIENTS AT THIS TIME, EDUCATED PATIENT ON NEED FOR DIALYSIS ACCESS SOON POSSIBLE AND CHELSEA CATH PLACEMENT WOULD BE BEST OPTION FOR DIALYSIS NOW BUT SHE IS STILL REFUSING STATING SHE HAS HAD ONE BEFORE AND IT FELL OUT IMMEDIATELY AFTER BEING USED ONCE. PATIENT CALLING DIALYSIS CENTER TO SEE IF THERE IS ANOTHER DOCTOR THAT WOULD BE ABLE TO TAKE A COVID POSITIVE PATIENT TO PLACE A TUNNELED CATH.
[2019-09-15] MEDS: OXYBUTYNIN CHL 5 MG TAB PO SCH (10:29)
[2019-09-15] MEDS: cloNIDine HCL 0.1 MG TAB PO SCH (10:29)
[2019-09-15] MEDS: ATORVASTATIN 20 MG TAB PO SCH (10:29)
[2019-09-15] MEDS: GABAPENTIN 300 MG CAP PO SCH (10:29)
[2019-09-15] MEDS: MULTIPLE VITAMINS W/ MINERALS TAB PO SCH (10:29)
[2019-09-15] MEDS: ASPirin-EC 81 mg tab PO SCH (10:30)
[2019-09-15] MEDS: FUROSEMIDE 40 MG TAB PO SCH (10:30)
[2019-09-15] MEDS: amLODIPine BESYLATE 5 MG TAB PO SCH (10:41)
--- NOTE | 2019-09-15 12:15 | NUR ---
PATIENT NOW WILLING FOR CHELSEA PATIENT STATED SHE WILL ACCEPT THE CHELSEA CATH PLACEMENT AND DIALYSIS TODAY. PAGE TO ER DOCTOR, SUPPLIES TO BE GATHERED FOR PROCEDURE.
[2019-09-15] MEDS ORDERED: HEPARIN SODIUM (PORCINE) 5000 UNITS/ML 1ML VIAL ONE (12:23)
--- NOTE | 2019-09-15 12:30 | NUR ---
CALL TO ER ER MD TO PERFORM CHELSEA CATH WHEN AVAILABLE, ALL SUPPLIES READY AT BEDSIDE, AWAITING MD.
--- NOTE | 2019-09-15 12:32 | NUR ---
Nutrition Followup Notes please see attached link for complete assessment [employer] needs ABW 82 [id number] kcals (25-27 kcal/kgABW), Est Protein needs: 98-114 gms/day (1.2-1.3gm/kgABW r/t HD). Will continue to monitor and reassess prn. Addendum: 09/15/19 at [address] Amended: Links added.
[2019-09-15 12:38] VITALS: BP 144/82
--- NOTE | 2019-09-15 14:50 | NUR ---
DR MILLAN CALL UPDATED ON PATIENT CONDITION. NO NEW ORDERS.
--- NOTE | 2019-09-15 16:31 | NUR ---
DR LAWRENCE AT BEDSIDE BEDSIDE PROCEDURE CHELSEA CATH PLACEMENT. ATTEMPT TO PATIENTS BILATERAL NECK BUT UNSUCCESSFUL AND ABORTED. DR LAWRENCE PLACED RIGHT FEMORAL CHELSEA CATH 12 FR. PATIENT TOLERATED IT WELL. REPOSITIONED FOR COMFORT, CALL PLACED TO DIALYSIS NURSE FOR TREATMENT.
[2019-09-15] MEDS: traMADol HCL 50 MG TAB PO PRN (20:50)
[2019-09-15 23:14] VITALS: BP 146/77
--- NOTE | 2019-09-16 00:30 | NUR ---
Dressing Change Patient requesting dressing change at this time. Patient reports she has not had her dressing changed since . Cleansed dislodged AV fistula to right upper arm with wound cleanser, patted dry, applied optifoam, wrapped with kerlix and coband as requested by patient. Patient tolerated well. Drainage was noted on previous dressing.
[2019-09-16] MEDS: traMADol HCL 50 MG TAB PO PRN (02:50)
[2019-09-16] MEDS: ONDANSETRON HCL 4 MG/2 ML VIAL IV PRN ×2 (04:40→09:57)
[2019-09-16 05:00] VITALS: BP 150/71
[2019-09-16] MEDS: SILDENAFIL CITRATE 20 MG TAB PO SCH ×4 (05:19→23:49)
--- NOTE | 2019-09-16 06:03 | NUR ---
Dialysis nurse at the bedside Dialysis nurse at the bedside initiating dialysis.
[2019-09-16 06:42] LABS: Albumin 3.3 g/dL (3.4-5.0); Calcium 7.7 mg/dL (8.5-10.1); Potassium 5.1 mmol/L (3.5-5.1)
[2019-09-16 06:46] LABS: BUN/Creatinine Ratio 7.4; Bilirubin, Total 0.4 mg/dL (0.2-1.0); Total Protein 6.7 g/dL (6.4-8.2)
--- NOTE | 2019-09-16 07:29 | NUR ---
Opening Shift Note Assumed care of patient, resting comfortably on dialysis. No S/S of distress/SOB or pain on 2 LPM via nasal cannula. Instructed on POC and to call for assist PRN, will continue to monitor for changes Q1hr and PRN. Bed in low and locked position, rails up x2 no-slip socks on.
[2019-09-16 08:41] LABS: Hematocrit 28.4 % (36.0-46.0); Hemoglobin 9.3 g/dL (12.2-16.2)
[2019-09-16 09:00] VITALS: BP 150/72
[2019-09-16] MEDS: OXYBUTYNIN CHL 5 MG TAB PO SCH (09:53)
[2019-09-16] MEDS: MULTIPLE VITAMINS W/ MINERALS TAB PO SCH (09:53)
[2019-09-16] MEDS: GABAPENTIN 300 MG CAP PO SCH (09:53)
[2019-09-16] MEDS: SEVELAMER 800 MG TAB PO SCH ×3 (09:53→18:29)
[2019-09-16] MEDS: ASPirin-EC 81 mg tab PO SCH (09:53)
--- NOTE | 2019-09-16 09:55 | NUR ---
DIALYSIS COMPLETED PATIENT TOLERATED IT WELL BP 101/55 HR 65, TOTAL OUTPUT 2.2L.
[2019-09-16] MEDS: amLODIPine BESYLATE 5 MG TAB PO SCH (10:00)
[2019-09-16] MEDS: cloNIDine HCL 0.1 MG TAB PO SCH (10:00)
[2019-09-16] MEDS: FUROSEMIDE 40 MG TAB PO SCH (10:00)
[2019-09-16] MEDS: ATORVASTATIN 20 MG TAB PO SCH (10:00)
--- NOTE | 2019-09-16 12:00 | NUR ---
PATIENT COMPLAINS OF NAUSEA STATED IT STARTED IN THE MORNING AND DURING DIALYSIS. NO NOTED VOMIT BUT PATIENT IS FATIGUED AND NAUSEOUS, WILL CONTINUE TO MEDICATE ORDERED, PAGE TO DR MILLAN TO NOTIFY.
--- NOTE | 2019-09-16 14:18 | NUR ---
HOLD DISCHARGE PATIENT BP 119/61 HR 56 O2 96% ON 2 L, PATIENT IS LETHARGIC BUT EASILY AROUSABLE. WILL CONTINUE TO MONITOR. PATIENT STATED SHE WANTS TO STAY ANOTHER NIGHT TO GET HER STRENGTH BACK.
[2019-09-16 17:00] VITALS: BP_SYST 138
--- NOTE | 2019-09-16 20:00 | NUR ---
Opening Shift Note Assumed care of patient, awake and alert x4. Patient denies pain or shortness of breath at this time. No sign/symptoms of distress noted or verbalized at this time. Instructed on plan of care and encouraged patient to call for assistance as needed, patient verbalized understanding. Bed is locked in lowest position, side rails x 2 are up, and call light is within reach.
[2019-09-16] MEDS: ACETAMINOPHEN 325 MG TAB PO PRN (20:38)
[2019-09-16] MEDS ORDERED: EPOETIN ALFA 10,000 UNIT/1 ML VIAL IV ONE (21:00)
[2019-09-16 22:00] VITALS: BP 134/70
[2019-09-17 04:45] VITALS: BP 123/65
[2019-09-17] MEDS: SILDENAFIL CITRATE 20 MG TAB PO SCH ×3 (05:13→21:27)
--- NOTE | 2019-09-17 06:37 | NUR ---
Respiratory note: PT AWAKE, ALERT. NO RESPIRATORY DISTRESS NOTED. SPO2 96% ON 1L NC, HR 67, RR 18, BS CLEAR/DIMINISHED BILATERALLY. NO FURTHER RESPIRATORY INTERVENTIONS INDICATED. WILL CONTINUE TO MONITOR PT. CHARTING COMPLETE FROM OUTSIDE OF PT ROOM PER COVID-19 PRECAUTIONS/PROTOCOL.
[2019-09-17] MEDS ORDERED: SODIUM CHL 0.9% 1000 ML BAG XX ONE (07:00)
[2019-09-17 08:00] VITALS: BP 150/73
[2019-09-17] MEDS: SEVELAMER 800 MG TAB PO SCH ×3 (08:35→18:30)
[2019-09-17] MEDS: ASPirin-EC 81 mg tab PO SCH (08:36)
[2019-09-17] MEDS: OXYBUTYNIN CHL 5 MG TAB PO SCH (08:36)
[2019-09-17] MEDS: GABAPENTIN 300 MG CAP PO SCH (08:36)
[2019-09-17] MEDS: MULTIPLE VITAMINS W/ MINERALS TAB PO SCH (08:36)
[2019-09-17] MEDS: ATORVASTATIN 20 MG TAB PO SCH (08:36)
[2019-09-17] MEDS: FUROSEMIDE 40 MG TAB PO SCH (08:37)
[2019-09-17] MEDS: amLODIPine BESYLATE 5 MG TAB PO SCH (08:41)
[2019-09-17] MEDS: cloNIDine HCL 0.1 MG TAB PO SCH (08:41)
[2019-09-17] MEDS ORDERED: guaiFENesin-DM 100/10mg/5ml SYR PO PRN (10:15)
[2019-09-17 12:00] VITALS: BP 150/78
[2019-09-17] MEDS ORDERED: CATHFLO ACTIVASE (ALTEPLASE) 2 MG VIAL IV STA (14:41)
--- NOTE | 2019-09-17 15:33 | NUR ---
Patient dialysis catheter is non tunneling and per diaylsis nurse "not working properly" spoke with doctor Chase per MD hold off on discharging patient he would like patient to have a tunneling cath placed before patient is d/c. Per doctor Chase he will call doctor Rene and go over POC. Will continue to monitor.
--- NOTE | 2019-09-17 15:52 | NUR ---
SPOKE WITH DOCTOR SHAN RECEIVED ORDERS TO TRANSFER PATIENT TO [facility] FOR HIGHER LEVEL OF CARE TO RECEIVE TUNNEL CATHERE. READ BACK AND VERIFIED.
--- NOTE | 2019-09-17 16:40 | NUR ---
1640 09/17/19 - Faxed to [facility] at [phone] face sheet, order for transfer to [facility], H/P, labs, meds, consultations. Contacted Wound Nurse at [phone], pending bed availability. Addendum: 09/17/19 at 1655 by Leni Reed RN [phone] 09/17/19 - Per [facility] Wound Nurse, there are no COVID Positive beds available, maybe tomorrow. I will placed patient on [facility] will call.
[2019-09-17 17:00] VITALS: BP 159/88
[2019-09-17] MEDS ORDERED: EPOETIN ALFA 10,000 UNIT/1 ML VIAL SC ONE (21:00)
[2019-09-17 21:57] VITALS: BP 142/76
[2019-09-18 05:10] VITALS: BP 147/77
[2019-09-18] MEDS: SILDENAFIL CITRATE 20 MG TAB PO SCH ×3 (05:22→21:25)
--- NOTE | 2019-09-18 06:04 | NUR ---
Respiratory note: POX: HR 72, RR 16, SPO2 96% ON 2L NC, BS CLEAR. NO SIGNS OR SYMPTOMS OF RESPIRATORY DISTRESS NOTED AT THIS TIME. WILL CONTINUE TO MONITOR ORDERED.
[2019-09-18 08:00] VITALS: BP 127/58
[2019-09-18] MEDS: SEVELAMER 800 MG TAB PO SCH ×4 (08:00→18:01)
[2019-09-18 08:44] VITALS: BP 127/58
--- NOTE | 2019-09-18 09:15 | NUR ---
Blood in stool Patient has bright red blood in her stool. I questioned how long she has had blood in her stool and patient said for 1 week. She said she has not informed anyone of this because she "takes care of these problems herself". I explained to her the importance of informing the nurse/doctor of these abnormal findings. Informed Dr Jeong and carried out order received.
[2019-09-18] MEDS: ASPirin-EC 81 mg tab PO SCH (09:50)
[2019-09-18] MEDS: FUROSEMIDE 40 MG TAB PO SCH (09:50)
[2019-09-18] MEDS: OXYBUTYNIN CHL 5 MG TAB PO SCH (09:50)
[2019-09-18] MEDS: cloNIDine HCL 0.1 MG TAB PO SCH (09:50)
[2019-09-18] MEDS: ATORVASTATIN 20 MG TAB PO SCH (09:50)
[2019-09-18] MEDS: MULTIPLE VITAMINS W/ MINERALS TAB PO SCH (09:51)
[2019-09-18] MEDS: GABAPENTIN 300 MG CAP PO SCH (09:51)
[2019-09-18] MEDS: amLODIPine BESYLATE 5 MG TAB PO SCH (09:51)
--- NOTE | 2019-09-18 10:10 | NUR ---
Update on patient status provided to Dr Chase.
[2019-09-18 12:56] VITALS: BP 129/60
[2019-09-18 17:00] VITALS: BP 120/66
--- NOTE | 2019-09-18 18:20 | NUR ---
GI Consult Informed Dr Ronel Martinez of patients blood in stool. No new orders at this time, continue to monitor
[2019-09-18] MEDS: PANTOPRAZOLE 40 MG/10 ML VIAL INJ IV SCH (21:25)
--- NOTE | 2019-09-18 23:30 | NUR ---
Blood Noted in Stool Assisted patient to the toilet with walker. Red bright blood was noted in patient's stool. Patient denies fatigue, dizziness, or shortness of breath at this time. Patient assisted back into bed. Patient is currently laying in bed with even and unlabored respirations. No sign/symptoms of distress noted at this time.
[2019-09-18 23:50] VITALS: BP 130/74
[2019-09-19 05:14] VITALS: BP 137/65
[2019-09-19] MEDS: SILDENAFIL CITRATE 20 MG TAB PO SCH ×3 (05:50→21:49)
[2019-09-19 06:43] LABS: White Blood Cell 3.8 10^3/uL (4.4-10.8)
[2019-09-19 06:44] LABS: Hematocrit 25.2 % (36.0-46.0); Hemoglobin 8.3 g/dL (12.2-16.2); Mean Corpuscular Hemoglobin 32.3 pg (28.0-32.0); Mean Corpuscular Hgb Conc. 32.8 g/dL (32.0-36.0); Mean Corpuscular Volume 98.5 fL (80.0-100.0); Platelet Count (auto) 132 10^3/uL (140-450); Red Blood Cells 2.56 10^6/uL (4.0-5.20); Red Cell Distribution Width 17.2 % (11.8-14.3)
[2019-09-19 06:45] LABS: BUN/Creatinine Ratio 5.8; Calcium 8.2 mg/dL (8.5-10.1)
[2019-09-19 06:54] LABS: Band Neutrophils % (manual) 0; Basophils % (manual) 0 (0.0-2.0); Blast Cells 0; Metamyelocytes % 0; Myelocytes % 0; Promyelocytes % 0; Reactive Lymphocytes 0
--- NOTE | 2019-09-19 07:00 | NUR ---
Nose Bleed This RN was called to the bedside by mary. Patient reported a nose bleed. Blood was noted on a paper towel. No nose bleed noted at this time. Provided patient with a cold wash cloth and instructed patient to place it on the bridge of her nose, patient verbalized understanding. No sign/symptoms of distress noted at this time.
--- NOTE | 2019-09-19 07:40 | NUR ---
Opening Shift Note Assumed care of patient, awake and alert. No S/S of distress/SOB remains on o2 at 2l or pain. Instructed on POC and to call for assist PRN, will continue to monitor for changes Q1hr and PRN.
[2019-09-19 07:42] LABS: Potassium 5.6 mmol/L (3.5-5.1)
--- NOTE | 2019-09-19 07:45 | NUR ---
Critical labs received will inform MD and inquire about dialysis.
[2019-09-19 08:00] VITALS: BP 139/77
[2019-09-19 11:05] LABS: Eosinophils % (manual) 5 (0-7); Lymphocytes % (manual) 18 (10.0-50.0); Monocytes % (manual) 17 (0-12)
[2019-09-19] MEDS: SEVELAMER 800 MG TAB PO SCH ×3 (11:09→17:25)
[2019-09-19] MEDS: PANTOPRAZOLE 40 MG/10 ML VIAL INJ IV SCH ×2 (11:09→21:49)
[2019-09-19] MEDS: OXYBUTYNIN CHL 5 MG TAB PO SCH (11:10)
[2019-09-19] MEDS: ASPirin-EC 81 mg tab PO SCH (11:10)
[2019-09-19] MEDS: FUROSEMIDE 40 MG TAB PO SCH (11:10)
[2019-09-19] MEDS: ATORVASTATIN 20 MG TAB PO SCH (11:11)
[2019-09-19] MEDS: amLODIPine BESYLATE 5 MG TAB PO SCH (11:11)
[2019-09-19] MEDS: GABAPENTIN 300 MG CAP PO SCH (11:11)
[2019-09-19] MEDS: MULTIPLE VITAMINS W/ MINERALS TAB PO SCH (11:11)
[2019-09-19] MEDS: cloNIDine HCL 0.1 MG TAB PO SCH (11:12)
[2019-09-19 12:00] VITALS: BP 166/76
--- NOTE | 2019-09-19 12:52 | NUR ---
Nutrition Followup Notes Pt wt is 97.3 kg Unable to speak to pt d/t pt is positive for COVID. Pt is with a Renal Standard diet, underwent HD yesterday. Pt appetite is good aeb ave 96% PO intake over 7 meals per RN doc. Pt with no noted distress per RN doc. Will continue to monitor PO status, skin status, pertinent labs and weight trends. Will f/u in 3-5 days. [employer] needs ABW 82 [id number] kcals (25-27 kcal/kgABW), Est Protein needs: 98-114 gms/day (1.2-1.3gm/kgABW r/t HD). Will continue to monitor and reassess prn. LABS: K 5.6 H, BUN 91 H, CR 15.6 H, GFR 2 L, Ca 8.2 L, Alb 3.3 L GI: Pt had 1 BM on 09/17 per RN doc BS: 18 mod risk. Refer to wound assessment report for full details. PES: 1) Altered nutrition related lab values r.t current chronic medical condition aeb elev RFT mild hypoalb 2) Decreased nutrient needs r/t adiposity aeb pt`s high BMI of 32.1 kgm2 Comments 1) refer to [facility] dietitan on DC 2) continue current plan of care
--- NOTE | 2019-09-19 13:21 | NUR ---
spoke with Dr Chase, pt to receive dialysis today.
[2019-09-19] MEDS ORDERED: SODIUM CHL 0.9% 1000 ML BAG XX ONE (14:30)
[2019-09-19 16:47] VITALS: BP 127/66
--- NOTE | 2019-09-19 19:30 | NUR ---
Opening Shift Note Assumed care of patient, awake and alert x4. Patient denies pain or shortness of breath at this time. No sign/symptoms of distress noted at this time. Instructed on plan of care and encouraged patient to call for assistance, patient verbalized understanding. Bed is locked in lowest position, side rails x 2 are up, call light is within reach, and bed alarm is on.
--- NOTE | 2019-09-19 19:52 | NUR ---
Dr. Jeong made aware of Dr. Chase's recommendations to place patient on Lokelma 10 gram daily. Orders received from Dr. Jeong to start Lokelma 10 gram tonight. Addendum: 09/20/19 at 0317 by LAURI ZEE RN RN Dr. Jeong made aware of Dr. Chase's recommendations to place patient on Lokelma 10 gram daily. Orders received from Dr. Jeong to start Lokelma 10 gram tonight. Order verified. Will carry out order as received.
[2019-09-19] MEDS ORDERED: EPOETIN ALFA 10,000 UNIT/1 ML VIAL SC ONE (21:00)
[2019-09-19] MEDS: SODIUM ZIRCONIUM CYCL 10 GM PAK PO SCH (21:49)
[2019-09-19 22:00] VITALS: BP 135/62
[2019-09-20 05:43] VITALS: BP 143/74
[2019-09-20] MEDS: SILDENAFIL CITRATE 20 MG TAB PO SCH ×3 (06:35→21:57)
--- NOTE | 2019-09-20 07:40 | NUR ---
Opening Shift Note Assumed care of patient, awake and alert. No S/S of distress/SOB or pain. Instructed on POC and to call for assist PRN, will continue to monitor for changes Q1hr and PRN.
[2019-09-20 09:00] VITALS: BP 145/77
--- NOTE | 2019-09-20 09:03 | NUR ---
0900 09/20/19 - Contacted [facility] at [phone] regarding pending transfer, spoke with house furnishings supervisor Marissa who stated she currently had no beds available, also stated that she has 25 patients on hold. Marissa did state if the situation changes she would contact me or the nurses station.
[2019-09-20] MEDS: SEVELAMER 800 MG TAB PO SCH ×3 (09:19→18:16)
[2019-09-20] MEDS: PANTOPRAZOLE 40 MG/10 ML VIAL INJ IV SCH ×2 (09:21→21:57)
[2019-09-20] MEDS: cloNIDine HCL 0.1 MG TAB PO SCH (09:22)
[2019-09-20] MEDS: OXYBUTYNIN CHL 5 MG TAB PO SCH (09:22)
[2019-09-20] MEDS: ASPirin-EC 81 mg tab PO SCH (09:22)
[2019-09-20] MEDS: ATORVASTATIN 20 MG TAB PO SCH (09:23)
[2019-09-20] MEDS: FUROSEMIDE 40 MG TAB PO SCH (09:23)
[2019-09-20] MEDS: SODIUM ZIRCONIUM CYCL 10 GM PAK PO SCH (09:23)
[2019-09-20] MEDS: GABAPENTIN 300 MG CAP PO SCH (09:24)
[2019-09-20] MEDS: MULTIPLE VITAMINS W/ MINERALS TAB PO SCH (09:24)
[2019-09-20] MEDS: amLODIPine BESYLATE 5 MG TAB PO SCH (09:25)
[2019-09-20] MEDS ORDERED: SODIUM CHL 0.9% 1000 ML BAG XX ONE (10:30)
--- NOTE | 2019-09-20 12:44 | NUR ---
Patient receiving dialysis at this time, reports feeling well, will continue to monitor.
[2019-09-20 12:48] VITALS: BP 150/75
--- NOTE | 2019-09-20 14:30 | NUR ---
I SPOKE WITH DR FLORES REGARDING OUTPATIENT DIALYSIS CATH PLACEMENT, HE STATED THAT SHE COULD HAVE A CATH PLACEMENT AN OUTPATIENT AT [facility] IF SHE IS ABOUT TO GET TRANSPORTATION ON FRIDAY. CORK WIRER AND PATIENT NOTIFIED.
[2019-09-20 15:12] LABS: Hepatitis A Ab IgM Negative
[2019-09-20 15:14] LABS: Hepatitis B Core IgM Negative; Hepatitis B Surface Antigen Negative (Negative); Hepatitis C Antibody Negative (Negative)
[2019-09-20 17:00] VITALS: BP 123/72
[2019-09-20 20:00] VITALS: BP 153/73
[2019-09-20] MEDS ORDERED: EPOETIN ALFA 10,000 UNIT/1 ML VIAL SC ONE (21:00)
[2019-09-20 22:00] VITALS: BP 153/76
[2019-09-21] MEDS: ONDANSETRON HCL 4 MG/2 ML VIAL IV PRN (02:38)
--- NOTE | 2019-09-21 02:38 | NUR ---
Nausea/Stomach Upset Patient c/o of nausea/stomach upset, medication given (see EMAR).
--- NOTE | 2019-09-21 03:08 | NUR ---
RE Nausea/Stomach Upset Patient resting with eyes closed, no sign of pain or distress. Will continue to monitor.
[2019-09-21 05:00] VITALS: BP 153/76
[2019-09-21] MEDS: SILDENAFIL CITRATE 20 MG TAB PO SCH ×2 (06:11→14:39)
--- NOTE | 2019-09-21 06:57 | NUR ---
Respiratory note: PT RESTING COMFORTABLY. NO RESPIRATORY DISTRESS NOTED. SPO2 94% ON RA, HR 78, RR 18, BS CLEAR/DIMINISHED BILATERALLY. NO FURTHER RESPIRATORY INTERVENTIONS INDICATED. WILL CONTINUE TO MONITOR PT.
[2019-09-21 08:00] VITALS: BP 140/58
[2019-09-21] MEDS: SEVELAMER 800 MG TAB PO SCH ×2 (08:00→12:21)
--- NOTE | 2019-09-21 08:00 | NUR ---
Received pt resting in bed, call light within reach, no pain reported or noticed at this time, Hemodialysis nurse at bed side to start the hemodialysis treatment, rt upper arm dressing clean and dry, will continue to monitor pt.
[2019-09-21] MEDS ORDERED: SODIUM CHL 0.9% 1000 ML BAG XX ONE (08:15)
[2019-09-21 08:58] LABS: Anion Gap 8 (5-15); BUN/Creatinine Ratio 4.1; Blood Urea Nitrogen 43 mg/dL (7-18); Calcium 8.4 mg/dL (8.5-10.1); Carbon Dioxide 26 mmol/L (21-32); Chloride 101 mmol/L (98-107); GFR African American 5 mL/min; GFR Non-African American 4 mL/min; Glucose 93 mg/dL (74-106); Potassium 4.5 mmol/L (3.5-5.1); Sodium 135 mmol/L (136-145)
[2019-09-21 09:00] VITALS: BP 140/58
[2019-09-21] MEDS: cloNIDine HCL 0.1 MG TAB PO SCH (10:00)
--- NOTE | 2019-09-21 10:35 | NUR ---
Received call from Dr. Jeong to inquired on pt's status, doctor informed that as per report pt has an appointment as out pt at [facility] to replace the HD cath on , and that pt is reporting that she has the appointment is for Friday. As per doctor call nephro and clarify the pt's appt and ok to d/c if ok by nephro. Paged Dr. Gil / nephro awaiting call back.
--- NOTE | 2019-09-21 11:00 | NUR ---
Dr. Gil / machine binder stripper at unit to see pt, doctor discussed the plan of care with pt, as per doctor pt can be d/c today after the Geoff cath is removed from the rt groin.
[2019-09-21] MEDS: PANTOPRAZOLE 40 MG/10 ML VIAL INJ IV SCH (12:17)
[2019-09-21] MEDS: FUROSEMIDE 40 MG TAB PO SCH (12:19)
[2019-09-21] MEDS: ASPirin-EC 81 mg tab PO SCH (12:19)
[2019-09-21] MEDS: OXYBUTYNIN CHL 5 MG TAB PO SCH (12:19)
[2019-09-21] MEDS: GABAPENTIN 300 MG CAP PO SCH (12:20)
[2019-09-21] MEDS: SODIUM ZIRCONIUM CYCL 10 GM PAK PO SCH (12:20)
[2019-09-21] MEDS: ATORVASTATIN 20 MG TAB PO SCH (12:20)
[2019-09-21] MEDS: amLODIPine BESYLATE 5 MG TAB PO SCH (12:21)
[2019-09-21] MEDS: MULTIPLE VITAMINS W/ MINERALS TAB PO SCH (12:23)
[2019-09-21 13:00] VITALS: BP 119/62
--- NOTE | 2019-09-21 13:10 | NUR ---
Dr. Nesbitt at bed side to remove the alex cath to rt groin area, removed alex cath, applied pressure to area for 5 min, applied pressure dressing, will continue to monitor pt.
--- NOTE | 2019-09-21 13:15 | NUR ---
Call and spoke to pt's daughter Candace to inquire on pt's transportation to [facility] on at 7:30AM, as per pt's daughter she will be able to take pt to the appointment on .
[2019-09-21 13:47] VITALS: BP 119/86
--- NOTE | 2019-09-21 14:40 | NUR ---
Discharge instructions given as ordered. Encourage to follow up with PMD as instructed. All questions and concerns addressed. Patient and pt's daughter over the phone verbalized understanding. Medication reconciliation form completed and copy given to patient. No home medications held in Pharmacy, and no needed vaccines to be given. IV removed with catheter intact, pressure dressing applied. Awaiting for pt's daughter to black pickler pt.
--- NOTE | 2019-09-21 16:26 | NUR ---
Patient taken to vehicle via wheelchair with all personal belongings, accompanied by staff member. Family awaiting outside of the hospital. No distress noted at time of departure.
== END 2019-09-21 16:27 | disposition home or self-care (01) | DRG 314 ==
LOC: ER 16:29 → EDBD 16:29 → OVERFLOW 16:30 → EAST 09-12 05:54
PROVIDERS: ADMIT Hospitalist; ATTEND Internal Medicine
PROC: 06HY33Z Insertion of Infusion Device into Lower Vein, Percutaneous Approach (ICD-10-PCS; principal; 2019-09-13)
PROC: 5A1D70Z Performance of Urinary Filtration, Intermittent, Less than 6 Hours Per Day (ICD-10-PCS; 2019-09-13)
PROC: 5A1D70Z Performance of Urinary Filtration, Intermittent, Less than 6 Hours Per Day (ICD-10-PCS; 2019-09-14)
PROC: 5A1D70Z Performance of Urinary Filtration, Intermittent, Less than 6 Hours Per Day (ICD-10-PCS; 2019-09-15)
DX: T82.42XA Displacement of vascular dialysis catheter, initial encounter (principal); U07.1 COVID-19; J12.89 Other viral pneumonia; N18.6 End stage renal disease; I12.0 Hypertensive chronic kidney disease with stage 5 chronic kidney disease or end stage renal disease; N25.81 Secondary hyperparathyroidism of renal origin; E87.2 Acidosis; J44.0 Chronic obstructive pulmonary disease with (acute) lower respiratory infection; K92.1 Melena; T82.868A Thrombosis due to vascular prosthetic devices, implants and grafts, initial encounter; T82.41XA Breakdown (mechanical) of vascular dialysis catheter, initial encounter; E83.51 Hypocalcemia; E83.39 Other disorders of phosphorus metabolism; D64.9 Anemia, unspecified; E87.5 Hyperkalemia; I27.20 Pulmonary hypertension, unspecified; Y71.2 Prosthetic and other implants, materials and accessory cardiovascular devices associated with adverse incidents; Z99.2 Dependence on renal dialysis; Z82.3 Family history of stroke; Z82.49 Family history of ischemic heart disease and other diseases of the circulatory system; Z83.3 Family history of diabetes mellitus; Z86.73 Personal history of transient ischemic attack (TIA), and cerebral infarction without residual deficits; Z88.5 Allergy status to narcotic agent; Z79.82 Long term (current) use of aspirin; Z79.899 Other long term (current) drug therapy; Y92.89 Other specified places as the place of occurrence of the external cause; Z86.39 Personal history of other endocrine, nutritional and metabolic disease; Z87.39 Personal history of other diseases of the musculoskeletal system and connective tissue
CPT/HCPCS: 36415; 71045; 80048; 80053; 80061; 80074; 82306; 82378; 82962; 83036; 83970; 84100; 85007; 85014; 85018; 85025; 85027; 85610; 87081; 90935; 94760; C9113; G0378; J0885; J1642; J2405

== ENCOUNTER → 2019-11-02 | Outpatient (CLI) | payer MEDICARE, MEDICAID ==
[~2019-11-02] MED LIST changes: +ALLO100T PO; +CLOP75TA28 PO; +CYANOCOBALAMIN (B-12) 1000 MCG/1 ML VIAL IM ONE; +CYANOCOBALAMIN (B-12) 1000 MCG/1 ML VIAL ONE; +GABA100C9 PO
[2019-11-02 11:00] VITALS: BP 124/55
[2019-11-02 11:37] VITALS: BP 132/63
== END | disposition home or self-care (01) ==
LOC: Rad HDHVI 09:59
PROVIDERS: ATTEND Internal Medicine
DX: I13.2 Hypertensive heart and chronic kidney disease with heart failure and with stage 5 chronic kidney disease, or end stage renal disease (principal); I50.9 Heart failure, unspecified; N18.6 End stage renal disease; D64.9 Anemia, unspecified; J44.9 Chronic obstructive pulmonary disease, unspecified; Z99.2 Dependence on renal dialysis; Z79.82 Long term (current) use of aspirin; Z79.899 Other long term (current) drug therapy; Z86.73 Personal history of transient ischemic attack (TIA), and cerebral infarction without residual deficits
CPT/HCPCS: 93306; 94618; 96372; G0463; J3420

== ENCOUNTER → 2019-12-06 | Outpatient (CLI) | payer OTHER, MEDICAID ==
[~2019-12-06] MED LIST changes: -CYANOCOBALAMIN (B-12) 1000 MCG/1 ML VIAL IM ONE; -CYANOCOBALAMIN (B-12) 1000 MCG/1 ML VIAL ONE
[2019-12-06 12:07] LABS: Hematocrit 38.2 % (36.0-46.0); Hemoglobin 12.1 g/dL (12.2-16.2); Mean Corpuscular Hemoglobin 31.7 pg (28.0-32.0); Mean Corpuscular Hgb Conc. 31.7 g/dL (32.0-36.0); Mean Corpuscular Volume 99.9 fL (80.0-100.0); Platelet Count (auto) 195 10^3/uL (140-450); Red Blood Cells 3.82 10^6/uL (4.0-5.20); Red Cell Distribution Width 18.5 % (11.8-14.3); White Blood Cell 2.3 10^3/uL (4.4-10.8)
[2019-12-06 12:17] LABS: Basophils % (manual) 0 (0.0-2.0); Blast Cells 0; Metamyelocytes % 0; Myelocytes % 0; Promyelocytes % 0; Reactive Lymphocytes 0
[2019-12-06 12:24] LABS: Potassium 4.1 mmol/L (3.5-5.1)
[2019-12-06 12:27] LABS: Free T4 (Free Thyroxine) 0.78 ng/dL (0.89-1.76)
[2019-12-06 12:33] LABS: Albumin 4.5 g/dL (3.4-5.0); BUN/Creatinine Ratio 3.4; Bilirubin, Total 0.4 mg/dL (0.2-1.0); Calcium 8.7 mg/dL (8.5-10.1); Total Protein 7.8 g/dL (6.4-8.2)
[2019-12-06 13:00] LABS: Band Neutrophils % (manual) 1; Eosinophils % (manual) 2 (0-7); Lymphocytes % (manual) 29 (10.0-50.0); Monocytes % (manual) 19 (0-12)
== END | disposition home or self-care (01) ==
LOC: LAB 09:02
PROVIDERS: ATTEND Internal Medicine Cardiovascular Disease
DX: E11.9 Type 2 diabetes mellitus without complications (principal); D51.3 Other dietary vitamin B12 deficiency anemia; I10 Essential (primary) hypertension; E55.9 Vitamin D deficiency, unspecified; D64.9 Anemia, unspecified; R00.2 Palpitations; R53.1 Weakness; R30.0 Dysuria
CPT/HCPCS: 36415; 80053; 80061; 82306; 82607; 83036; 84439; 84443; 85007; 85027